=== PATIENT | female | born 1955 | race Caucasian/White ===

== ENCOUNTER 2016-12-31 15:42 | Observation (INO) ==
[2016-12-31] MEDS ORDERED: methylPREDNISolone 125 MG/2 ML VIAL IVP ONE (15:56)
[2016-12-31] MEDS ORDERED: Ipratropium/Albuterol Neb 3 ML IH ONE (15:56)
--- NOTE | 2016-12-31 15:59 | Emergency Department Note ---
START Narrative - START START: Dr. Ochoa had a critical patient and I saw this patient to do the initial evaluation and order labs and imaging studies. Patient presents to the emergency department with complaint of difficulty in breathing. Patient states that her symptoms of bone present for approximately 4 weeks. Patient states that she was seen at an urgent care, prescribed antibiotics, steroids and an inhaler but has not had any significant improvement. She denies any chest pain. She denies any dizziness or lightheadedness. She denies any fever, chills, nausea, vomiting or abdominal pain.
--- NOTE | 2016-12-31 16:19 | Emergency Department Note ---
Disposition Clinical Impression: Acute exacerbation of chronic obstructive airways disease Disposition: Admitted As Inpatient Condition: Fair Referrals: NO,PCP [Primary Care Provider] - Forms: ED Satisfaction Letter Time of Disposition: 18:01 SOB HPI - General Chief Complaint: ED Shortness of Breath/Dyspnea Stated Complaint: BLAYNE Time Seen by Provider: 12/31/16 15:56 Source: patient, family Limitations: no limitations Nursing Notes Reviewed: Yes Vital Signs Reviewed: Yes - History of Present Illness 61-year-old who comes in with increasing shortness of breath. States she has no history of COPD but has a 40+ pack year history of smoking. Has had a cough. Pt Subjective Complaint: shortness of breath, cough Onset (ago): day(s) Context: recent illness Severity: moderate Consistency/Duration: constant Improves with: nothing Worsens with: exertion Associated symptoms: Reports: cough, wheezing. Denies: chest pain, fever - Related Data Previous Rx's Medication Instructions Recorded Albuterol Sulfate [Proair Hfa] 1 puff IH Q4H PRN #1 inh 12/20/16 Azithromycin [Zithromax] 250 mg PO DAILY #6 tablet 12/20/16 PredniSONE [Prednisone] 60 mg PO DAILY 5 Days 12/20/16 Allergies Allergy/AdvReac Type Severity Reaction Status Date / Time ampicillin Allergy Hives Verified 12/20/16 16:26 All systems ED: reviewed and negative except as stated. Constitutional: Denies: fever, chills, weakness, weight change Eyes: Denies: eye pain, eye discharge, vision change ENT ED: Denies: ear pain, throat pain, dental pain, hearing loss, epistaxis, congestion, dysphagia Cardiovascular: Denies: chest pain, palpitations, dyspnea on exertion, edema, syncope Respiratory: Reports: cough, dyspnea, wheezes. Denies: hemoptysis, stridor Gastrointestinal: Denies: abdominal pain, nausea, vomiting, diarrhea, constipation, hematemesis, melena, hematochezia Genitourinary: Denies: dysuria, frequency, hematuria, discharge Musculoskeletal: Denies: back pain, neck pain, arthralgia, myalgia Integumentary: Denies: rash, abrasion, lesions Neurological: Denies: headache, weakness, numbness, paresthesias, confusion, abnormal gait, vertigo Psychiatric: Denies: anxiety, depression, suicidal thoughts, homicidal thoughts , auditory hallucinations, visual hallucinations Endocrine: Denies: fatigue Hematological/Lymphatic: Denies: easy bleeding, easy bruising Allergic/Immunologic: Denies: facial swelling, urticaria Past Medical History - Past Medical History Medical history: Reports: hyperlipidemia - Social History Smoking Status: Current every day smoker Smokeless Tobacco Status: No Alcohol use: Reports: occasionally Physical Exam - General Limitations: no limitations General appearance: alert, in no apparent distress - Head Head exam: atraumatic, normocephalic, normal inspection - Eye Eye exam: Present: normal appearance, PERRL, EOMI - ENT ENT exam: normal exam, normal oropharynx, mucous membranes moist - Neck Neck exam: Present: normal inspection, full ROM, trachea midline - Chest Chest inspection: Present: normal inspection, symmetric chest wall rise - Respiratory Respiratory exam: Present: wheezes, accessory muscle use, prolonged expiratory phase - Cardiovascular Cardiovascular exam: Present: regular rate, normal rhythm, normal heart sounds - Abdominal Exam Abdominal exam: Present: soft, Non-Tender. Absent: tenderness, distention, guarding, rebound, rigidity - Extremities Exam Extremities exam: Present: normal inspection, full ROM. Absent: tenderness, pedal edema - Expanded Lower Extremity Exam Neurovascular/Tendon exam: Absent: motor deficit, sensory deficit, tendon deficit Gait: observed and normal - Back Exam Back exam: Present: normal inspection, full ROM. Absent: tenderness Course - Reevaluation(s) Reevaluation #1: 61-year-old with no previous history concerning her lungs but she comes in complaining of increasing shortness of breath with diffuse wheezes. Patient does have a 40+ year smoking history. Since initial blood pressure was elevated but came down with treatment. Time: 18:00 - Consultations Consultation #1: Discussed with , admit. Time: 18:16 Vital Signs Temperature 97.9 F 12/31/16 15:46 Pulse Rate 100 12/31/16 15:46 Respiratory Rate 22 12/31/16 15:46 Blood Pressure 168/113 12/31/16 15:46 O2 Sat by Pulse Oximetry 98 12/31/16 15:46 Temperature 97.9 F 12/31/16 15:46 Pulse Rate 90 12/31/16 18:04 Respiratory Rate 20 12/31/16 18:04 Blood Pressure 145/80 12/31/16 18:04 O2 Sat by Pulse Oximetry 94 12/31/16 18:04 Oxygen Delivery Oxygen Delivery Room Air Shortness of Breath/Dyspnea - Lab Data Lab results reviewed: Yes I reviewed the patient's lab results. Result diagrams: 12/31/16 16:37 12/31/16 16:37 Lab Results 12/31/16 12/31/16 12/31/16 Range/Units 16:37 16:37 16:37 WBC 11.6 H (4.3-11.1) K/mcL RBC 5.42 H (3.82-4.97) M/mcL Hgb 15.1 (11.5-15.4) g/dL Hct 47.7 H (35.3-44.9) % MCV 88.0 (83.0-100.0) fL MCH 27.9 L (28.0-33.3) pg MCHC 31.7 (31.6-35.5) g/dL RDW 13.7 (11.5-14.5) % Plt Count 364 (140-400) K/mcL MPV 11.7 (9.4-12.4) fL Immature Gran % 0.8 (0-4) % Seg Neutrophils % 86.7 % Lymphocytes % 9.9 % Monocytes % 1.2 % Eosinophils % 0.4 % Basophils % 1.0 % Neutrophils # 10.0 H (1.6-8.9) K/mcL Lymphocytes # 1.2 (0.6-4.6) K/mcL Monocytes # 0.1 (0.0-1.3) K/mcL Eosinophils # 0.1 (0.0-0.6) K/mcL Basophils # 0.1 (0.0-0.2) K/mcL PT 10.9 (9.4-12.1) Seconds INR 1.0 APTT 31.2 (26.0-36.0) Seconds Sodium 140 (136-145) mEq/L Potassium 3.6 (3.5-4.5) mEq/L Chloride 105 (98-109) mEq/L Carbon Dioxide 25 (19-29) mEq/L BUN 6 L (7-20) mg/dL Creatinine 0.78 (0.57-1.11) mg/dL Est GFR ( Amer) > 60 (> 60) Est GFR (Non-Af Amer) > 60 (> 60) BUN/Creatinine Ratio 8 (6-26) Glucose 188 H (70-99) mg/dL Calculated Osmolality 293 (280-300) Calcium 9.8 (8.6-10.8) mg/dL Troponin I (0-0.03) ng/mL B-Natriuretic Peptide (0-100) pg/mL 12/31/16 12/31/16 Range/Units 16:37 16:37 WBC (4.3-11.1) K/mcL RBC (3.82-4.97) M/mcL Hgb (11.5-15.4) g/dL Hct (35.3-44.9) % MCV (83.0-100.0) fL MCH (28.0-33.3) pg MCHC (31.6-35.5) g/dL RDW (11.5-14.5) % Plt Count (140-400) K/mcL MPV (9.4-12.4) fL Immature Gran % (0-4) % Seg Neutrophils % % Lymphocytes % % Monocytes % % Eosinophils % % Basophils % % Neutrophils # (1.6-8.9) K/mcL Lymphocytes # (0.6-4.6) K/mcL Monocytes # (0.0-1.3) K/mcL Eosinophils # (0.0-0.6) K/mcL Basophils # (0.0-0.2) K/mcL PT (9.4-12.1) Seconds INR APTT (26.0-36.0) Seconds Sodium (136-145) mEq/L Potassium (3.5-4.5) mEq/L Chloride (98-109) mEq/L Carbon Dioxide (19-29) mEq/L BUN (7-20) mg/dL Creatinine (0.57-1.11) mg/dL Est GFR ( Amer) (> 60) Est GFR (Non-Af Amer) (> 60) BUN/Creatinine Ratio (6-26) Glucose (70-99) mg/dL Calculated Osmolality (280-300) Calcium (8.6-10.8) mg/dL Troponin I 0.00 (0-0.03) ng/mL B-Natriuretic Peptide 20 (0-100) pg/mL - Radiology Data Radiology results reviewed: Yes I reviewed the patient's radiology results. Chest X-Ray 12/31/16 15:56 IMPRESSION: No acute findings D/ / Efra Hager MD / Efra Hager MD Interpreting Provider: Efra Hager MD - EKG Data EKG attestation: Yes I reviewed and interpreted this EKG. EKG shows normal: Reports: sinus rhythm Rate: Reports: normal Rhythm: Reports: NSR Interpretation: Reports: no acute changes
[2016-12-31 16:53] LABS: Basophils # 0.1 K/mcL (0.0-0.2); Eosinophils # 0.1 K/mcL (0.0-0.6); Eosinophils % 0.4 %; Hematocrit 47.7 % (35.3-44.9); Hemoglobin 15.1 g/dL (11.5-15.4); Immature Granulocytes % 0.8 % (0-4); Lymphocytes # 1.2 K/mcL (0.6-4.6); Lymphocytes % 9.9 %; Mean Corpuscular HGB Conc 31.7 g/dL (31.6-35.5); Mean Corpuscular Hemoglobin 27.9 pg (28.0-33.3); Mean Platelet Volume 11.7 fL (9.4-12.4); Monocytes # 0.1 K/mcL (0.0-1.3); Monocytes % 1.2 %; Platelet Count 364 K/mcL (140-400); Red Blood Count 5.42 M/mcL (3.82-4.97); Red Cell Distribution Width 13.7 % (11.5-14.5); Segmented Neutrophils % 86.7 %
[2016-12-31 16:59] LABS: Prothrombin Time 10.9 Seconds (9.4-12.1)
[2016-12-31 17:02] LABS: Activated Partial Thrombo Time 31.2 Seconds (26.0-36.0)
[2016-12-31 17:07] LABS: BUN/Creatinine Ratio 8 (6-26); Blood Urea Nitrogen 6 mg/dL (7-20); Calcium 9.8 mg/dL (8.6-10.8); Carbon Dioxide 25 mEq/L (19-29); Chloride 105 mEq/L (98-109); Glucose 188 mg/dL (70-99); Osmolality,Calculated 293 (280-300); Potassium 3.6 mEq/L (3.5-4.5); Sodium 140 mEq/L (136-145); eGFR For African Americans > 60 (> 60); eGFR For Non-African Americans > 60 (> 60)
[2016-12-31] MEDS ORDERED: *HR* Dextrose 50 % in Water (Syg) 50 ML SYRINGE IVP PRN (19:54)
[2016-12-31] MEDS ORDERED: Acetaminophen 325 MG TABLET PO PRN (19:54)
[2016-12-31] MEDS ORDERED: Ondansetron 4 MG/2 ML VIAL IVP PRN (19:54)
[2016-12-31] MEDS ORDERED: Naloxone 0.4 MG/ML INJ IVP PRN (19:54)
[2016-12-31] MEDS ORDERED: D5% in Water 1,000 ML IVC PRN (19:54)
[2016-12-31] MEDS ORDERED: Dextrose Gel 15 GM PO PRN ×2 (19:54)
--- NOTE | 2016-12-31 19:59 | Internal Med History&Physical ---
Date of Encounter: 12/31/16 Time of Encounter: 19:57 Assessment and Plan (1) Acute exacerbation of chronic obstructive airways disease Current visit: Yes Status: Acute Acute COPD exacerbation likely secondary to bronchitis viral versus bacterial Start Rocephin and continue Solu-Medrol IV, DuoNeb's Smoking cessation counseling, oxygen therapy (2) Tobacco abuse Current visit: Yes Status: Acute Smoking cessation counseling given for 5 minutes. Start nicotine patch (3) Accelerated hypertension Current visit: Yes Status: Acute Likely exacerbated by stress and shortness of breath Start lisinopril, order hydralazine as needed (4) Hyperlipidemia Current visit: Yes Status: Acute Qualifiers: Hyperlipidemia type: pure hypercholesterolemia Qualified Code(s): E78.00 - Pure hypercholesterolemia, unspecified; E78.0 - Pure hypercholesterolemia (5) GERD (gastroesophageal reflux disease) Current visit: Yes Status: Acute Continue Nexium at home and start Prilosec while being here in the hospital as Nexium is not available Early ambulation for DVT prophylaxis, patient will be admitted for observation. Full code. Time spent on this admission 40 minutes. Qualifiers: Esophagitis presence: without esophagitis Qualified Code(s): K21.9 - Gastro -esophageal reflux disease without esophagitis Internal Medicine - H&P: HPI Chief complaint: Shortness of breath Admitted From: Emergency Dept History of present illness: Ms. Aguilar is a 61 year old female with a past medical history of GERD and tobacco abuse who has never been diagnosed with COPD. Was seen at the emergency room at the beginning of this month on December 20 which she was diagnosed with bronchitis and was sent home on prednisone and assist from [facility]. The patient mentions that for the past week her shortness of breath has been getting worse. Her great grandbaby was diagnosed with her upper respiratory infection recently. White blood cell count is 11.6. Glucose is 188 and she has not seen a doctor in 7 years, no history of diabetes. Heart rate was in the 100s and her blood pressure was 176/105 during my examination. The chest x-ray did not show any abnormalities, she has been reading up yellow and whitish phlegm. Denies any other complaint at the moment she denied having any allergies but she has an ampicillin allergy and sulfa allergy recorded. Past Med Surg Social Fam HX - Past Medical History Medical history: GERD, hyperlipidemia, other (Hypertension, tobacco abuse) Psychiatric history: no psych history - Past Surgical History Surgical History: other (Back surgery twice, left foot and left hand surgeries) - Social History Smoking Status: Current every day smoker Packs per day: 1-1/2 packs per day Smokeless Tobacco Status: No Alcohol use: occasionally Drug use: none - Family History Father Hx Family Cancer: Yes (prostate) Mother Living Status: Hx Family Cardiac Disorders: Yes Hx Family Respiratory Disorders: Yes (copd) Hx Family Endocrine Disorder: Yes - Additional Family History Additional family history: Father with prostate cancer, mother with CVA and CAD. Brother with bone/hip cancer Internal Medicine - H&P: Meds Albuterol Sulfate [Proair Hfa] 1 puff IH Q4H PRN #1 inh 12/20/16 [Rx] Esomeprazole Magnesium [Nexium] 40 mg PO QAM 12/31/16 [History] Multivit-Minerals/Folic/Ginkgo [One Daily For Women 50+ Adv Tb] 1 tab PO DAILY 12/31/16 [History] Allergies ampicillin Allergy (Verified 12/20/16 16:26) Hives Sulfa (Sulfonamide Antibiotics) Allergy (Verified 12/31/16 18:44) Hives All Systems PM: A 10-system review of systems was performed and is negative for pertinent findings except as documented above in the HPI. Review of systems: No chest pain, no abdominal pain, no dysuria. Other systems out of the 10 reviewed were negative - Constitutional Vitals: Temp Pulse Resp BP Pulse Ox 98.2 F 95 18 176/105 94 12/31/16 19:42 12/31/16 19:42 12/31/16 19:42 12/31/16 19:42 12/31/16 19:42 - Head Head exam: Present: atraumatic, normocephalic - Eye Eye exam: Present: PERRL, conjuntiva pink, sclera anicteric Pupils: Present: PERRL - Neck Neck exam general surgery: Present: supple, trachea midline. Absent: lymphadenopathy - Respiratory Respiratory exam: Present: decreased breath sounds (Very diminished breath sounds with diffuse wheezing), CTAB, wheezes. Absent: accessory muscle use, rales, rhonchi - Cardiovascular Cardiovascular exam: Present: RRR, +S1, +S2. Absent: diastolic murmur, gallop, rubs, systolic murmur - GI/Abdominal GI/Abdominal exam: Present: normal bowel sounds, soft, no peritoneal signs. Absent: distended, tenderness - Extremities Exam Extremities exam: Present: warm, radial pulses palpable and symetrical. Absent : calf tenderness, cyanotic, pedal edema - Neurological Exam Neurological exam: Present: CN II-XII intact, oriented X3, no focal deficits. Absent: pronater drift, facial droop, speech deficit - Skin Skin exam: Present: dry, intact Internal Med - H&P Results - Labs CBC & Chem 7: 12/31/16 16:37 12/31/16 16:37
[2016-12-31] MEDS: MethylPREDNISolone 40 MG/ML VIAL IVP SCH (21:13)
[2016-12-31] MEDS: Nicotine 21 MG PATCH.TD24 TD SCH (21:13)
[2016-12-31] MEDS: Insulin LISPRO 300 UNITS/3 ML VIAL SQ SCH (21:14)
[2016-12-31] MEDS: Lisinopril 20 MG TABLET PO SCH (21:14)
[2016-12-31] MEDS: Ipratropium/Albuterol Neb 3 ML IH SCH (23:51)
[2017-01-01 03:57] LABS: Basophils % 0.5 %; Hematocrit 43.7 % (35.3-44.9); Immature Granulocytes % 1.6 % (0-4); Lymphocytes % 11.1 %; Mean Corpuscular Hemoglobin 28.1 pg (28.0-33.3); Mean Corpuscular Volume 87.6 fL (83.0-100.0); Mean Platelet Volume 12.3 fL (9.4-12.4); Monocytes # 0.2 K/mcL (0.0-1.3); Monocytes % 2.6 %; Neutrophils # 7.4 K/mcL (1.6-8.9); Platelet Count 362 K/mcL (140-400); Red Blood Count 4.99 M/mcL (3.82-4.97); Red Cell Distribution Width 13.6 % (11.5-14.5); Segmented Neutrophils % 84.2 %
[2017-01-01 04:04] LABS: Hemoglobin A1C 5.4 %
[2017-01-01 04:13] LABS: Alanine Aminotransferase 9 Units/L (0-55); Albumin 3.6 g/dL (3.5-5.0); Alkaline Phosphatase 134 Units/L (38-126); Aspartate Amino Transferase 9 Units/L (5-34); BUN/Creatinine Ratio 8 (6-26); Bilirubin,Total 0.3 mg/dL (0.2-1.2); Blood Urea Nitrogen 6 mg/dL (7-20); Carbon Dioxide 23 mEq/L (19-29); Chloride 102 mEq/L (98-109); Globulin 3.6 g/dL (2.4-3.5); Glucose 158 mg/dL (70-99); Osmolality,Calculated 289 (280-300); Potassium 3.6 mEq/L (3.5-4.5); Sodium 139 mEq/L (136-145); Total Protein 7.2 g/dL (6.0-8.3); eGFR For African Americans > 60 (> 60); eGFR For Non-African Americans > 60 (> 60)
[2017-01-01] MEDS: Ipratropium/Albuterol Neb 3 ML IH SCH ×4 (04:38→23:11)
[2017-01-01] MEDS: Lisinopril 20 MG TABLET PO SCH (08:25)
[2017-01-01] MEDS: Insulin LISPRO 300 UNITS/3 ML VIAL SQ SCH ×4 (08:26→21:00)
[2017-01-01] MEDS: Nicotine 21 MG PATCH.TD24 TD SCH (08:26)
[2017-01-01] MEDS: MethylPREDNISolone 40 MG/ML VIAL IVP SCH ×3 (08:34→20:29)
--- NOTE | 2017-01-01 14:10 | Internal Med Progress Note ---
Date of Encounter: 01/01/17 Time of Encounter: 08:25 - Assessment and plan (1) Acute exacerbation of chronic obstructive airways disease Current Visit: Yes Status: Acute Assessment and plan: Patient has never been diagnosed with COPD. She has recent illness over the last 1-1/2 weeks she was seen at [facility] urgent care for URI symptoms and was given prednisone, antibiotic, and an albuterol inhaler. Her antibiotic was Z-Seb. She said she did not get any better and has actually become worse. She reports productive cough with white sputum. Wheezing is heard in all posterior lung dickerson. And she coughs with deep inspiration. White count is 8.7, patient is on room air and is satting anywhere from 90-94%, her chest x-ray showed no acute findings. We discussed smoking cessation. We talked for at least 10 minutes. We discussed multiple options and she is agreeable to trying Chantix. I will give her prescription when she goes home tomorrow. She is also requested a nebulizer and albuterol treatments for discharge. Yash troy Rocephin 1 g IV daily Solu-Medrol 40 mg (2) Tobacco abuse Current Visit: Yes Status: Acute Assessment and plan: Chronic smoker. Reports that she smokes anywhere from 1/2-1 pack per day. Smoking cessation with Chantix. Prescription on discharge (3) Accelerated hypertension Current Visit: Yes Status: Acute Assessment and plan: Patient remained slightly hypertensive for age, 140s over 80s. Her resting pulse is over 100 as well. I have changed her blood pressure medication to metoprolol 12.5 mg by mouth twice a day we will assess again in the morning. (4) GERD (gastroesophageal reflux disease) Current Visit: Yes Status: Acute Assessment and plan: Chronic. Continue Nexium. Qualifiers: Esophagitis presence: without esophagitis Qualified Code(s): K21.9 - Gastro -esophageal reflux disease without esophagitis (5) Hyperlipidemia Current Visit: Yes Status: Acute Assessment and plan: Chronic. Patient does not take medication at this time at home. I cannot find documentation of a lipid panel, I will redraw fasting at 400 in the morning Qualifiers: Hyperlipidemia type: pure hypercholesterolemia Qualified Code(s): E78.00 - Pure hypercholesterolemia, unspecified; E78.0 - Pure hypercholesterolemia - Time Spent With Patient less than 15 minutes - Subjective Interval history: Patient was seen and examined about 825 this morning. She is sitting up in her bed, she had eaten all of her breakfast. She reports about a 1-1/2 week history of productive cough and difficulty breathing. She was seen in urgent care where she received prednisone, Z-Seb, and an inhaler. She did not get better. Over the last week she became increasingly short of breath and came to the emergency department for evaluation. She has mild leukocytosis at 11.6. She has been tachycardic with resting heart rate over 100. In her blood pressure has been elevated as well. She was placed on lisinopril on admission, I have changed it to metoprolol 12.5 mg by mouth twice a day due to heart rate. We just 6 minute walk this morning while her sats stayed in the mid 90s, her pulse was in the 120s and 130s. 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 She said she does not feel up to going home yet and will stay until morning. \ - Constitutional Vitals: Temp Pulse Resp BP Pulse Ox 98.2 F 107 18 147/82 94 01/01/17 11:08 01/01/17 11:08 01/01/17 11:08 01/01/17 11:08 01/01/17 12:37 General appearance: Present: A&O X 3, pleasant, no acute distress, answers questions appropriately - Head Head exam: Present: normal inspection - Eye Eye exam: Present: normal appearance, conjuntiva pink - ENT ENT exam: Present: mucous membranes moist, normal exam - Neck Neck exam general surgery: Present: normal inspection. Absent: lymphadenopathy , tenderness - Respiratory Respiratory exam: Present: decreased breath sounds, rhonchi, wheezes. Absent: respiratory distress, tachypnea - Cardiovascular Cardiovascular exam: Present: RRR, +S1, +S2. Absent: diastolic murmur, systolic murmur - GI/Abdominal GI/Abdominal exam: Present: normal bowel sounds, soft. Absent: tenderness - Extremities Exam Extremities exam: Present: normal inspection, warm, radial pulses palpable and symetrical. Absent: pedal edema, tenderness Internal Medicine: Result - Labs CBC & Chem 7: 01/01/17 03:09 01/01/17 03:09 Labs: Short CBC 01/01/17 Range/Units 03:09 WBC 8.7 (4.3-11.1) K/mcL Hgb 14.0 (11.5-15.4) g/dL Hct 43.7 (35.3-44.9) % Plt Count 362 (140-400) K/mcL Neutrophils # 7.4 (1.6-8.9) K/mcL BMP 01/01/17 03:09 Sodium 139 Potassium 3.6 Chloride 102 Carbon Dioxide 23 BUN 6 L Creatinine 0.76 Glucose 158 H Calcium 10.0 Liver Function 01/01/17 Range/Units 03:09 Total Bilirubin 0.3 (0.2-1.2) mg/dL AST 9 (5-34) Units/L ALT 9 (0-55) Units/L Alkaline Phosphatase 134 H (38-126) Units/L Albumin 3.6 (3.5-5.0) g/dL - ABG Interpretation ABG results: PT/INR, D-dimer PT 10.9 Seconds (9.4-12.1) 12/31/16 16:37 Consult Discharge Plan - Plan Referrals: NO,PCP [Primary Care Provider] -
[2017-01-01] MEDS: Pantoprazole 40 MG VIAL IVP SCH (20:29)
[2017-01-02 02:56] LABS: Basophils % 0.2 %; Hematocrit 42.2 % (35.3-44.9); Hemoglobin 13.4 g/dL (11.5-15.4); Immature Granulocytes % 1.3 % (0-4); Lymphocytes # 1.2 K/mcL (0.6-4.6); Lymphocytes % 6.7 %; Mean Corpuscular HGB Conc 31.8 g/dL (31.6-35.5); Mean Corpuscular Hemoglobin 27.9 pg (28.0-33.3); Mean Corpuscular Volume 87.9 fL (83.0-100.0); Mean Platelet Volume 12.2 fL (9.4-12.4); Monocytes # 0.6 K/mcL (0.0-1.3); Monocytes % 3.7 %; Neutrophils # 15.3 K/mcL (1.6-8.9); Platelet Count 361 K/mcL (140-400); Red Cell Distribution Width 14.1 % (11.5-14.5); Segmented Neutrophils % 88.1 %
[2017-01-02] MEDS: Ipratropium/Albuterol Neb 3 ML IH SCH ×2 (05:01→11:32)
[2017-01-02 05:11] LABS: BUN/Creatinine Ratio 16 (6-26); Blood Urea Nitrogen 12 mg/dL (7-20); Calcium 9.7 mg/dL (8.6-10.8); Carbon Dioxide 27 mEq/L (19-29); Chloride 106 mEq/L (98-109); Cholesterol 183 mg/dL (< 200); Glucose 130 mg/dL (70-99); HDL Cholesterol 62 mg/dL (40-59); LDL Cholesterol,Calculated 105 mg/dL (0-99); Osmolality,Calculated 296 (280-300); Potassium 5.1 mEq/L (3.5-4.5); Sodium 142 mEq/L (136-145); Triglycerides 78 mg/dL (< 150); eGFR For African Americans > 60 (> 60); eGFR For Non-African Americans > 60 (> 60)
[2017-01-02] MEDS: Pantoprazole 40 MG VIAL IVP SCH (05:48)
[2017-01-02] MEDS: Insulin LISPRO 300 UNITS/3 ML VIAL SQ SCH ×2 (09:13→12:22)
[2017-01-02] MEDS: Nicotine 21 MG PATCH.TD24 TD SCH (09:40)
[2017-01-02] MEDS: MethylPREDNISolone 40 MG/ML VIAL IVP SCH (09:44)
[2017-01-02 10:29] LABS: Basophils # 0.1 K/mcL (0.0-0.2); Basophils % 0.2 %; Hematocrit 44.8 % (35.3-44.9); Immature Granulocytes % 1.5 % (0-4); Lymphocytes % 14.6 %; Mean Corpuscular HGB Conc 31.3 g/dL (31.6-35.5); Mean Corpuscular Hemoglobin 27.8 pg (28.0-33.3); Mean Corpuscular Volume 88.9 fL (83.0-100.0); Mean Platelet Volume 12.1 fL (9.4-12.4); Monocytes # 0.8 K/mcL (0.0-1.3); Monocytes % 4.1 %; Neutrophils # 16.2 K/mcL (1.6-8.9); Platelet Count 386 K/mcL (140-400); Red Blood Count 5.04 M/mcL (3.82-4.97); Red Cell Distribution Width 14.4 % (11.5-14.5); Segmented Neutrophils % 79.6 %
[2017-01-02 10:49] LABS: BUN/Creatinine Ratio 16 (6-26); Blood Urea Nitrogen 14 mg/dL (7-20); Calcium 9.6 mg/dL (8.6-10.8); Carbon Dioxide 27 mEq/L (19-29); Chloride 105 mEq/L (98-109); Cholesterol 194 mg/dL (< 200); Glucose 173 mg/dL (70-99); HDL Cholesterol 64 mg/dL (40-59); LDL Cholesterol,Calculated 88 mg/dL (0-99); Osmolality,Calculated 301 (280-300); Potassium 3.2 mEq/L (3.5-4.5); Sodium 143 mEq/L (136-145); Triglycerides 208 mg/dL (< 150); eGFR For African Americans > 60 (> 60); eGFR For Non-African Americans > 60 (> 60)
[2017-01-02 11:08] VITALS: BP 120/76
--- NOTE | 2017-01-02 11:31 | Discharge Summary ---
Date of Encounter: 01/02/17 Time of Encounter: 09:30 - Discharge Diagnosis (1) Acute exacerbation of chronic obstructive airways disease Priority: Primary Status: Acute Comments: COPD exacerbation most likely bronchitis. Pt reports moist, productive cough today, she states that cough is constant. Lungs with better aeration than yesterday with ronchi posteriorly, some clearing with cough. Wheezing heard in upper airway anteriorly. Pt states that she feels much better today and wants to go home for Easter. Pt has been getting Rocephin, I will send her home with Levaquin for 5 days due to her leukocytosis that has been both 17 and 20 today. Blood was redrawn due to hemolysis and partial reporting of some labs. Pt has remained afebrile. Leukocytosis most likely due to high dose of steroids IV that she has been getting here. Prednisone taper for home. Levaquin 500mg po x 5 days, first dose here since it is a holiday and pharmacy may not be open. Pt has Albuterol inhaler at home. Pt has requested a nebulizer for home, albuterol treatments Mucinex rx (2) Tobacco abuse Priority: Secondary Status: Chronic Comments: Chronic. Chantix rx for home. (3) Accelerated hypertension Priority: Secondary Status: Chronic Comments: Pt has been placed on Metoprolol here, tolerating well. BP and pulse have been well controlled. (4) GERD (gastroesophageal reflux disease) Priority: Secondary Status: Chronic Comments: Chronic. Continue home medications. Qualifiers: Esophagitis presence: without esophagitis Qualified Code(s): K21.9 - Gastro -esophageal reflux disease without esophagitis (5) Hyperlipidemia Priority: Secondary Status: Chronic Comments: Pt states that she stopped taking her medications when she lost her PCP. She used to take crestor and has requested to restart it. Trig 208, Cholesterol 194, LCL 88, VLDL 42, HDL 64. Restart Crestor. Qualifiers: Hyperlipidemia type: pure hypercholesterolemia Qualified Code(s): E78.00 - Pure hypercholesterolemia, unspecified; E78.0 - Pure hypercholesterolemia - Discharge Medications Prescriptions: GuaiFENesin ER [Mucinex] 1,200 mg PO BID #20 tbbp.12hr Ipratropium/Albuterol Neb [Duoneb] 3 ml IH QIDR PRN #50 inhsol PRN Reason: Wheezing Levofloxacin [Levaquin] 500 mg PO DAILY #4 tablet Metoprolol [Lopressor] 12.5 mg PO BID #60 tablet Nebulizer [Aeroeclipse] 1 each PRN PRN #1 each PRN Reason: Wheezing Nebulizer Accessories [A.i.r.s. Nebulizer] 1 each PRN PRN #1 kit PRN Reason: Wheezing Nebulizer/Compressor [Eldridge Choice Nebulizer] 1 each PRN PRN #1 each PRN Reason: Wheezing PredniSONE 10 mg PO DAILY #31 tablet Rosuvastatin Calcium [Crestor] 10 mg PO DAILY #30 tablet Varenicline Tartrate [Chantix] 1 each PO DAILY #1 tab.ds.pk Home Medications: Albuterol Sulfate [Proair Hfa] 1 puff IH Q4H PRN #1 inh 12/20/16 [Rx] Esomeprazole Magnesium [Nexium] 40 mg PO QAM 12/31/16 [History] Multivit-Minerals/Folic/Ginkgo [One Daily For Women 50+ Adv Tb] 1 tab PO DAILY 12/31/16 [History] GuaiFENesin ER [Mucinex] 1,200 mg PO BID #20 tbbp.12hr 01/02/17 [Rx] Ipratropium/Albuterol Neb [Duoneb] 3 ml IH QIDR PRN #50 inhsol 01/02/17 [Rx] Levofloxacin [Levaquin] 500 mg PO DAILY #4 tablet 01/02/17 [Rx] Metoprolol [Lopressor] 12.5 mg PO BID #60 tablet 01/02/17 [Rx] Nebulizer Accessories [A.i.r.s. Nebulizer] 1 each PRN PRN #1 kit 01/02/17 [Rx ] Nebulizer [Aeroeclipse] 1 each PRN PRN #1 each 01/02/17 [Rx] Nebulizer/Compressor [Eldridge Choice Nebulizer] 1 each PRN PRN #1 each [Rx] PredniSONE 10 mg PO DAILY #31 tablet 01/02/17 [Rx] Rosuvastatin Calcium [Crestor] 10 mg PO DAILY #30 tablet 01/02/17 [Rx] Varenicline Tartrate [Chantix] 1 each PO DAILY #1 tab.ds.pk 01/02/17 [Rx] Allergies/Adverse Reactions: Allergies ampicillin Allergy (Verified 12/20/16 16:26) Hives Sulfa (Sulfonamide Antibiotics) Allergy (Verified 12/31/16 18:44) Hives Date of admission: 12/31/16 18:23 Primary care physician: PCP NO Consults: 12/31/16 19:52 Consult to Nurse Navigator [CONS] Routine Comment: Discharging clinician: Jennifer Alexander - Patient Status Disposition: Home, Self-Care Condition: Good Functional capacity at discharge: independent ambulation Overall status at discharge: patient is progressing back to baseline - Discharge Instructions Follow Up With: NO,PCP [Primary Care Provider] - Additional Instructions: Stay hydrated and take your medications as written Continue your other home medications Use your nebulizer treatments as needed for wheezing Take your Levaquin (antibiotic) every day until they are gone. Take the prednisone (steroid) as written and until they are gone. Please follow up with a PCP in the next week. REturn to emergency dept as needed for other problems or concerns or if your condition changes or worsens. - Diet and Activity Activity: resume usual activities as tolerated Diet: advance to your usual diet Interval History: Mrs. Aguilar is a 61-year-old female who lives at home with her son and 6-month- old grandson. Her only medical history prior to this visit was GERD and smoking. She is new onset COPD. She was seen in urgent care earlier this month and was diagnosed with bronchitis and sent home on prednisone, a zpack, and an albuterol inhaler. She did not get better and presented to the emergency department on December 29 with a one-week history of worsening shortness of breath. 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 She was admitted and placed on IV Rocephin 1 g every 12 hours IV, Solu-Medrol 40 mg IV push 3 times a day, and nebulizers as needed. Her chest x-ray in the emergency department shows heart size is stable, lungs are clear without infiltrate or pleural effusion. No acute findings. She has remained afebrile throughout this visit and today states that she feels better and is ready to go home and having Easter with her family. Her white count was elevated at 20. I believe this is primarily due to her high steroid dose. She has been treated with Rocephin and I am sending her home on Levaquin 500 mg daily for 5 days. Her labs were drawn 3 times this morning as the manager media relations specimen was hemolyzed and lab reported to primary nurse that they have been able to report some findings. They reported that her potassium was 5.1, we redo the blood and was actually within normal limits. Her white count went from 17-20, it was after administration of steroids this morning. Mrs. Aguilar does not have a primary care physician and has not been taking her Crestor. She requested to restart it and is going to follow-up with primary care from the find list. Today her vitals have been stable. She has been around 90-93% without oxygen this morning. She did not qualify for home oxygen. She became rather tachycardic while she was walking and was tachycardic at rest. She was placed on metoprolol 12.5 mg by mouth twice a day which has controlled her pressure and pulse. She has rhonchi in her posterior lung dickerson, some clearing with cough. She has wheezing in upper anterior lung dickerson. Patient will be sent home with a nebulizer and equipment, albuterol treatments, Mucinex, prednisone taper, Levaquin 500 mg by mouth 4 days after first dose here and today his holiday and pharmacy may not be open, I am also sending her home with the metoprolol prescription and Crestor. Patient is not in respiratory distress she speaks easily in full sentences. Patient is stable for discharge. Hospital course: Ms. Aguilar is a 61 year old female Time spent discussing smoking cessation with patient: 3 to 10 minutes - Time Spent with Patient Total time spent providing and/or coordinating discharge services: - Constitutional Vitals: Temp Pulse Resp BP Pulse Ox 97.8 F 92 17 120/76 91 01/02/17 11:04 01/02/17 11:04 01/02/17 11:04 01/02/17 11:04 01/02/17 11:04 General appearance: Present: A&O X 3, pleasant, no acute distress, answers questions appropriately - Head Head exam: Present: normal inspection - Eye Eye exam: Present: normal appearance, conjuntiva pink - ENT ENT exam: Present: mucous membranes moist, normal exam - Neck Neck exam general surgery: Present: normal inspection. Absent: lymphadenopathy , tenderness - Respiratory Respiratory exam: Present: rhonchi, wheezes. Absent: accessory muscle use, chest wall tenderness, respiratory distress - Cardiovascular Cardiovascular exam: Present: RRR, +S1, +S2. Absent: diastolic murmur, systolic murmur - GI/Abdominal GI/Abdominal exam: Present: normal bowel sounds, soft. Absent: distended, tenderness - Extremities Exam Extremities exam: Present: normal capillary refill, normal inspection, warm, radial pulses palpable and symetrical. Absent: pedal edema, tenderness - Neurological Exam Neurological exam: Present: alert, oriented X3, strengths equal and symetr throughout, pronater drift. Absent: no focal deficits, facial droop, speech deficit
[2017-01-02] MEDS ORDERED: levoFLOXacin 500 MG TABLET PO ONE (12:09)
--- NOTE | 2017-01-03 08:57 | Electrocardiograph Report ---
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
== END 2017-01-02 13:45 | disposition home or self-care (01) ==
LOC: EMEROO 15:42 → 3BNU 15:42
PROVIDERS: ADMIT Internal Medicine; ATTEND Registered Nurse

== ENCOUNTER 2017-02-25 12:25 | Observation (INO) ==
[2017-02-25] MEDS ORDERED: Ipratropium/Albuterol Neb 3 ML IH ONE (12:50)
[2017-02-25] MEDS ORDERED: methylPREDNISolone 125 MG/2 ML VIAL IVP ONE (12:50)
--- NOTE | 2017-02-25 13:09 | Emergency Department Note ---
Disposition Clinical Impression: COPD exacerbation Disposition: Admitted As Inpatient Condition: Fair Time of Disposition: 15:00 SOB HPI - General Chief Complaint: ED Shortness of Breath/Dyspnea Stated Complaint: BLAYNE Time Seen by Provider: 02/25/17 12:27 Source: patient, EMS Limitations: no limitations Nursing Notes Reviewed: Yes Vital Signs Reviewed: Yes - History of Present Illness Patient is a 61-year-old female who presents to [facility] ED with a chief complaint of shortness of breath. States she has had a cough over the last month. States she was diagnosed with COPD when she was admitted last time. Patient has been using her nebulizer treatments every 4-6 hours at home. States over the last 3 days, she coughed so hard that she has severe back pain with it. Denies any nausea, vomiting, fever or chills, no chest pain or abdominal pain. Past medical history otherwise significant for hypertension , hyperlipidemia, borderline diabetes. Pt Subjective Complaint: shortness of breath, cough Onset (ago): week(s) Context: recent illness Severity: moderate Consistency/Duration: gradually worsening Improves with: nothing Worsens with: coughing Known history of: COPD, diabetes Associated symptoms: Reports: cough, wheezing. Denies: chest pain, fever, diaphoresis, nausea/vomiting, abdominal pain Treatment prior to arrival: none Cough present: Yes Cough Description: Involuntary, Hacking Cough Frequency: Intermittent - Related Data Home oxygen amount: none Home Medications Medication Instructions Recorded Confirmed Esomeprazole Magnesium [Nexium] 40 mg PO QAM 12/31/16 02/25/17 Multivit-Minerals/Folic/Ginkgo 1 tab PO DAILY 12/31/16 02/25/17 [One Daily For Women 50+ Adv Tb] Budesonide/Formoterol 80/4.5 2 puff IH BID 02/25/17 02/25/17 [Symbicort 80/4.5] Previous Rx's Medication Instructions Recorded Albuterol Sulfate [Proair Hfa] 1 puff IH Q4H PRN #1 inh 12/20/16 Ipratropium/Albuterol Neb [Duoneb] 3 ml IH QIDR PRN #50 inhsol 01/02/17 Metoprolol [Lopressor] 12.5 mg PO BID #60 tablet 01/02/17 Rosuvastatin Calcium [Crestor] 10 mg PO DAILY #30 tablet 01/02/17 Allergies Allergy/AdvReac Type Severity Reaction Status Date / Time ampicillin Allergy Hives Verified 12/20/16 16:26 Sulfa (Sulfonamide Allergy Hives Verified 12/31/16 18:44 Antibiotics) All systems ED: reviewed and negative except as stated. Past Medical History - Past Medical History Attestation: Yes The following information was validated with the patient. Source: patient Medical history: Reports: COPD, GERD, hyperlipidemia, hypertension, other Surgical history: Reports: other (Back surgery twice, left foot and left hand surgeries) Psychiatric history: Reports: no psych history - Social History Smoking Status: Current every day smoker Smokeless Tobacco Status: No Alcohol use: Reports: occasionally Drug use: Reports: none Physical Exam - General Limitations: no limitations General appearance: alert, in no apparent distress - Head Head exam: atraumatic, normocephalic, normal inspection - Eye Eye exam: Present: normal appearance, PERRL, EOMI - ENT ENT exam: normal exam, normal oropharynx, mucous membranes moist - Neck Neck exam: Present: normal inspection, full ROM, trachea midline - Chest Chest inspection: Present: normal inspection, symmetric chest wall rise - Respiratory Respiratory exam: Present: wheezes, other (Tight breath sounds bilaterally) - Cardiovascular Cardiovascular exam: Present: regular rate, normal rhythm, normal heart sounds - Abdominal Exam Abdominal exam: Present: soft, Non-Tender. Absent: tenderness, distention, guarding, rebound, rigidity - Extremities Exam Extremities exam: Present: normal inspection, full ROM. Absent: tenderness, pedal edema - Back Exam Back exam: Present: paraspinal tenderness (R midthoracic) - Neurological Exam Neurological exam: Present: alert - Psychiatric Psychiatric exam: Present: normal affect, normal mood - Skin Skin exam: Present: warm, dry, intact, normal color Course Course Narrative: Patient seen and examined. Shortness of breath over the last several weeks. Patient now using her nebulizer treatments every 4-6 hours. States her cough has been worsening and now gives her bad pain in her back. Patient's lung sounds are decreased and wheezy bilaterally. We will do a triple DuoNeb treatment as well as 125 mg Solu-Medrol. We will do cardiopulmonary workup. Suspect patient will need admission due to hypoxemia. She is saturating 92% on 2 L oxygen at rest. She is not on any home oxygen. - Reevaluation(s) Reevaluation #1: Patient's lab work shows a leukocytosis. Chest x-ray unremarkable. We will admit for COPD exacerbation. I spoke with hospitalist Dr. Zheng who has accepted patient for admission. Time: 15:00 Vital Signs Temperature 97.9 F 02/25/17 12:26 Pulse Rate 74 02/25/17 12:26 Respiratory Rate 20 02/25/17 12:26 Blood Pressure 148/112 02/25/17 12:26 O2 Sat by Pulse Oximetry 93 02/25/17 12:26 Temperature 98.1 F 02/25/17 19:00 Pulse Rate 81 02/25/17 19:00 Respiratory Rate 16 02/25/17 19:00 Blood Pressure 147/77 02/25/17 19:00 O2 Sat by Pulse Oximetry 95 02/25/17 19:00 Oxygen Delivery Oxygen Delivery Nasal Cannula Shortness of Breath/Dyspnea - Medical Records Medical records reviewed: Yes I reviewed the patient's medical records. - Lab Data Lab results reviewed: Yes I reviewed the patient's lab results. Result diagrams: 02/25/17 13:10 02/25/17 13:10 Lab Results 02/25/17 02/25/17 02/25/17 Range/Units 13:10 13:10 13:10 WBC 14.9 H D (4.3-11.1) K/mcL RBC 5.18 H (3.82-4.97) M/mcL Hgb 14.5 (11.5-15.4) g/dL Hct 44.5 (35.3-44.9) % MCV 85.9 (83.0-100.0) fL MCH 28.0 (28.0-33.3) pg MCHC 32.6 (31.6-35.5) g/dL RDW 13.1 (11.5-14.5) % Plt Count 341 (140-400) K/mcL MPV 12.0 (9.4-12.4) fL Immature Gran % 0.6 (0-4) % Seg Neutrophils % 74.9 % Lymphocytes % 13.8 % Monocytes % 5.4 % Eosinophils % 4.2 % Basophils % 1.1 % Neutrophils # 11.2 H (1.6-8.9) K/mcL Lymphocytes # 2.1 (0.6-4.6) K/mcL Monocytes # 0.8 (0.0-1.3) K/mcL Eosinophils # 0.6 (0.0-0.6) K/mcL Basophils # 0.2 (0.0-0.2) K/mcL Sodium 141 (136-145) mEq/L Potassium 4.0 (3.5-4.5) mEq/L Chloride 106 (98-109) mEq/L Carbon Dioxide 25 (19-29) mEq/L BUN 5 L (7-20) mg/dL Creatinine 0.71 (0.57-1.11) mg/dL Est GFR ( Amer) > 60 (> 60) Est GFR (Non-Af Amer) > 60 (> 60) BUN/Creatinine Ratio 7 (6-26) Glucose 109 H (70-99) mg/dL Calculated Osmolality 290 (280-300) Lactic Acid 1.3 (0.5-2.2) mmol/L Calcium 9.8 (8.6-10.8) mg/dL Troponin I (0-0.03) ng/mL B-Natriuretic Peptide (0-100) pg/mL 02/25/17 02/25/17 02/25/17 Range/Units 13:10 13:10 15:09 WBC (4.3-11.1) K/mcL RBC (3.82-4.97) M/mcL Hgb (11.5-15.4) g/dL Hct (35.3-44.9) % MCV (83.0-100.0) fL MCH (28.0-33.3) pg MCHC (31.6-35.5) g/dL RDW (11.5-14.5) % Plt Count (140-400) K/mcL MPV (9.4-12.4) fL Immature Gran % (0-4) % Seg Neutrophils % % Lymphocytes % % Monocytes % % Eosinophils % % Basophils % % Neutrophils # (1.6-8.9) K/mcL Lymphocytes # (0.6-4.6) K/mcL Monocytes # (0.0-1.3) K/mcL Eosinophils # (0.0-0.6) K/mcL Basophils # (0.0-0.2) K/mcL Sodium (136-145) mEq/L Potassium (3.5-4.5) mEq/L Chloride (98-109) mEq/L Carbon Dioxide (19-29) mEq/L BUN (7-20) mg/dL Creatinine (0.57-1.11) mg/dL Est GFR ( Amer) (> 60) Est GFR (Non-Af Amer) (> 60) BUN/Creatinine Ratio (6-26) Glucose (70-99) mg/dL Calculated Osmolality (280-300) Lactic Acid 1.1 (0.5-2.2) mmol/L Calcium (8.6-10.8) mg/dL Troponin I 0.00 (0-0.03) ng/mL B-Natriuretic Peptide 29 (0-100) pg/mL - Radiology Data Radiology results reviewed: Yes I reviewed the patient's radiology results. Chest X-Ray 02/25/17 12:54 IMPRESSION: No acute cardiopulmonary abnormality. D/ / Ramo Fernandez MD / Ramo Fernandez MD Interpreting Provider: Ramo Fernandez MD - EKG Data EKG attestation: Yes I reviewed and interpreted this EKG. EKG results narrative: EKG done at 1241 shows normal sinus rhythm with a rate of [address] elevation or depression. Normal axis. Attestation Statement - Attestation Attestation: I, Jose Duncan, examined this patient and my medical decision-making was reviewed with the 1ST GRADE TEACHER/PA/Advanced Practice Nurse/Resident Physician. I agree with the documented findings, disposition and treatment plan as described except to the extent set forth below. 61-year-old female presents with concerns of increasing shortness of breath over the past 4-5 days. Patient states this feels similar to her previous COPD exacerbations. Patient reports back pain with coughing but pain is not present when remaining still. Patient improved after administration of DuoNeb. Patient visibly dyspneic with conversation. X-ray does not show acute infiltrate. Patient will be admitted to the hospital for COPD exacerbation.
[2017-02-25] MEDS ORDERED: Ipratropium/Albuterol Neb 3 ML ONE (13:13)
[2017-02-25 13:22] LABS: Basophils # 0.2 K/mcL (0.0-0.2); Basophils % 1.1 %; Eosinophils # 0.6 K/mcL (0.0-0.6); Eosinophils % 4.2 %; Hematocrit 44.5 % (35.3-44.9); Hemoglobin 14.5 g/dL (11.5-15.4); Immature Granulocytes % 0.6 % (0-4); Lymphocytes # 2.1 K/mcL (0.6-4.6); Lymphocytes % 13.8 %; Mean Corpuscular HGB Conc 32.6 g/dL (31.6-35.5); Mean Corpuscular Volume 85.9 fL (83.0-100.0); Monocytes # 0.8 K/mcL (0.0-1.3); Monocytes % 5.4 %; Neutrophils # 11.2 K/mcL (1.6-8.9); Platelet Count 341 K/mcL (140-400); Red Blood Count 5.18 M/mcL (3.82-4.97); Red Cell Distribution Width 13.1 % (11.5-14.5); Segmented Neutrophils % 74.9 %
[2017-02-25 13:40] LABS: BUN/Creatinine Ratio 7 (6-26); Calcium 9.8 mg/dL (8.6-10.8); Carbon Dioxide 25 mEq/L (19-29); Chloride 106 mEq/L (98-109); Glucose 109 mg/dL (70-99); Osmolality,Calculated 290 (280-300); Sodium 141 mEq/L (136-145); eGFR For African Americans > 60 (> 60); eGFR For Non-African Americans > 60 (> 60)
[2017-02-25 13:41] LABS: Blood Urea Nitrogen 5 mg/dL (7-20)
[2017-02-25] MEDS ORDERED: Ipratropium/Albuterol Neb 3 ML IH PRN (16:10)
[2017-02-25] MEDS: Ipratropium/Albuterol Neb 3 ML IH SCH ×2 (16:21→23:02)
--- NOTE | 2017-02-25 16:37 | Internal Med History&Physical ---
Date of Encounter: 02/25/17 Time of Encounter: 16:35 Assessment and Plan (1) Acute exacerbation of chronic obstructive airways disease Current visit: Yes Status: Acute Patient with history of chronic tobacco abuse with prior bronchitis presenting with worsening shortness of breath and possibly exacerbation of COPD with acute on chronic bronchitis. Would treat with IV steroids, O2 supplementation, bronchodilators, doxycycline as patient is having increased sputum production. Moderate risk for complications. (2) Essential hypertension Current visit: Yes Status: Chronic Blood pressure is well controlled. Continue metoprolol (3) Tobacco abuse Current visit: Yes Status: Chronic Consult about cessation. Patient states she is trying to cut the number and frequency of her smoking. (4) GERD (gastroesophageal reflux disease) Current visit: No Status: Chronic Continue PPI Qualifiers: Esophagitis presence: esophagitis presence not specified Qualified Code(s) : K21.9 - Gastro-esophageal reflux disease without esophagitis (5) Hyperlipidemia Current visit: No Status: Chronic Continue statin Qualifiers: Hyperlipidemia type: mixed hyperlipidemia Qualified Code(s): E78.2 - Mixed hyperlipidemia (6) Pleuritic pain Current visit: Yes Status: Acute Patient having pleuritic pain related to persistent coughing. Will treat symptomatically. Internal Medicine - H&P: HPI Chief complaint: Shortness of breath Admitted From: Emergency Dept Plans for Post Hospital Care: Home History of present illness: Ms. Aguilar is a 61 year old female patient with a history of COPD/chronic bronchitis, essential hypertension, hyperlipidemia presented to the ER with complaints of shortness of breath and right lower back of her chest wall pain. She was admitted here 6 weeks back for COPD exacerbation and was discharged on steroids. Her shortness of breath in and initially improved but returned soon after. She began to have pain in her lower back rib regions since 3 days back and progressively getting worse. This pain gets worse with coughing and with deep inspiration. She has also been using her nebulizer treatments every 4 hours scheduled with not much improvement in her symptoms. She continues to smoke although she says she has cut down from 2 packs per day to 1 pack every 2 days. She denies significant fever chills or night sweats. She does have clear sputum production. No nausea or vomiting. No hemoptysis. No weight loss. No chest pain or palpitations besides for the rib pain. Past Med Surg Social Fam HX - Past Medical History Attestation: Yes The following information was validated with the patient. Source: patient Medical history: COPD, GERD, hyperlipidemia, hypertension, other Psychiatric history: no psych history - Past Surgical History Surgical History: other - Social History Smoking Status: Current every day smoker Smokeless Tobacco Status: No Alcohol use: occasionally Drug use: none - Family History Father Hx Family Cancer: Yes (prostate) Mother Living Status: Hx Family Cardiac Disorders: Yes Hx Family Respiratory Disorders: Yes (copd) Hx Family Endocrine Disorder: Yes Internal Medicine - H&P: Meds Albuterol Sulfate [Proair Hfa] 1 puff IH Q4H PRN #1 inh 12/20/16 [Rx] Esomeprazole Magnesium [Nexium] 40 mg PO QAM 12/31/16 [History] Multivit-Minerals/Folic/Ginkgo [One Daily For Women 50+ Adv Tb] 1 tab PO DAILY 12/31/16 [History] Ipratropium/Albuterol Neb [Duoneb] 3 ml IH QIDR PRN #50 inhsol 01/02/17 [Rx] Metoprolol [Lopressor] 12.5 mg PO BID #60 tablet 01/02/17 [Rx] Rosuvastatin Calcium [Crestor] 10 mg PO DAILY #30 tablet 01/02/17 [Rx] Budesonide/Formoterol 80/4.5 [Symbicort 80/4.5] 2 puff IH BID 02/25/17 [History ] Allergies ampicillin Allergy (Verified 12/20/16 16:26) Hives Sulfa (Sulfonamide Antibiotics) Allergy (Verified 12/31/16 18:44) Hives All Systems PM: A 10-system review of systems was performed and is negative for pertinent findings except as documented above in the HPI. - Constitutional Constitutional: no chills, no fever(s), no night sweats - EENT Eyes: no change in vision, no discharge, no pain, no photophobia Ears: no ear discharge, no ear pain, no tinnitus Nose, mouth and throat: no dysphagia, no nasal discharge, no neck pain, no sore throat - Cardiovascular Cardiovascular ROS IM: no chest pain, no diaphoresis, no dyspnea, no lightheadedness, no palpitations, no syncope - Respiratory Respiratory: cough, dyspnea, pain on inspiration, excessive phlegm production, pain with cough - Gastrointestinal Gastrointestinal: no abdominal pain, no diarrhea, no hematemesis, no hematochezia, no melena, no nausea, no vomiting - Genitourinary Genitourinary: no change in urinary stream, no dysuria, no flank pain, no hematuria - Musculoskeletal Musculoskeletal ROS IM: no numbness, no tingling - Integumentary Integumentary IM: no rash, no unusual bruising - Neurological Neurological ROS: no confusion, no convulsions, no focal weakness, no numbness, no tingling, no tremor(s) - Hematologic/Lymphatic Hematologic/Lymphatic: no easy bruising - Constitutional Vitals: Temp Pulse Resp BP Pulse Ox 97.9 F 85 18 109/80 94 02/25/17 12:26 02/25/17 15:24 02/25/17 16:21 02/25/17 15:53 02/25/17 16:21 General appearance: Present: cooperative, mild distress, A&O X 3, pleasant, obese, answers questions appropriately - Neck Neck exam general surgery: Present: supple, trachea midline. Absent: lymphadenopathy - Respiratory Respiratory exam: Present: chest wall tenderness (In the right lower back of her chest over the 10th 11th and 12th ribs), prolonged expiratory phase, rhonchi , wheezes. Absent: accessory muscle use, rales - Cardiovascular Cardiovascular exam: Present: RRR, +S1, +S2. Absent: diastolic murmur, gallop, rubs, systolic murmur - GI/Abdominal GI/Abdominal exam: Present: normal bowel sounds, soft, no peritoneal signs. Absent: distended, tenderness - Extremities Exam Extremities exam: Present: warm, radial pulses palpable and symetrical. Absent : calf tenderness, cyanotic, pedal edema - Neurological Exam Neurological exam: Present: alert, oriented X3, no focal deficits. Absent: facial droop, speech deficit - Skin Skin exam: Present: dry, intact Internal Med - H&P Results - Labs CBC & Chem 7: 02/25/17 13:10 02/25/17 13:10 - Impressions Impressions Chest X-Ray 02/25/17 12:54 IMPRESSION: No acute cardiopulmonary abnormality. D/ / Ramo Fernandez MD / Ramo Fernandez MD Interpreting Provider: Ramo Fernandez MD - Attending Attestation This document has been at least partially created by [employer] recognition technology by Dr. Bonilla. Errors in grammar, wording or other phrases may exist. If errors are found after the documentation is signed, they will be addressed individually in the addendum section of this document when appropriate.
[2017-02-25] MEDS ORDERED: traMADol 50 MG TABLET PO PRN (16:43)
[2017-02-25] MEDS ORDERED: Acetaminophen 325 MG TABLET PO PRN (16:43)
[2017-02-25] MEDS: *HR* Heparin 5,000 UNIT/ML VIAL SQ SCH (17:45)
[2017-02-25] MEDS: Doxycycline 100 MG CAPSULE PO SCH (20:26)
[2017-02-25] MEDS ORDERED: Mag Hydrox/Al Hydrox/Simeth 30 ML UDC PO ONE (22:30)
[2017-02-25] MEDS: methylPREDNISolone 125 MG/2 ML VIAL IVP SCH (22:46)
[2017-02-25] MEDS: Budesonide/Formoterol 80/4.5 MDI IH SCH (23:02)
[2017-02-26] MEDS ORDERED: Ondansetron 4 MG/2 ML VIAL IVP PRN (01:50)
[2017-02-26 02:57] LABS: Basophils % 0.2 %; Hemoglobin 13.7 g/dL (11.5-15.4); Immature Granulocytes % 0.8 % (0-4); Lymphocytes # 0.9 K/mcL (0.6-4.6); Lymphocytes % 9.4 %; Mean Corpuscular HGB Conc 32.6 g/dL (31.6-35.5); Mean Corpuscular Hemoglobin 28.2 pg (28.0-33.3); Mean Corpuscular Volume 86.6 fL (83.0-100.0); Mean Platelet Volume 12.4 fL (9.4-12.4); Monocytes # 0.2 K/mcL (0.0-1.3); Neutrophils # 8.8 K/mcL (1.6-8.9); Platelet Count 350 K/mcL (140-400); Red Blood Count 4.85 M/mcL (3.82-4.97); Red Cell Distribution Width 13.2 % (11.5-14.5); Segmented Neutrophils % 87.6 %
[2017-02-26 03:18] LABS: BUN/Creatinine Ratio 11 (6-26); Blood Urea Nitrogen 9 mg/dL (7-20); Calcium 9.7 mg/dL (8.6-10.8); Carbon Dioxide 25 mEq/L (19-29); Chloride 102 mEq/L (98-109); Glucose 160 mg/dL (70-99); Osmolality,Calculated 288 (280-300); Potassium 4.1 mEq/L (3.5-4.5); Sodium 138 mEq/L (136-145); eGFR For African Americans > 60 (> 60); eGFR For Non-African Americans > 60 (> 60)
[2017-02-26] MEDS: Ipratropium/Albuterol Neb 3 ML IH SCH ×4 (04:38→23:27)
[2017-02-26] MEDS: *HR* Heparin 5,000 UNIT/ML VIAL SQ SCH ×2 (05:08→16:50)
[2017-02-26 06:41] LABS: Adenovirus Not Detected (Not Detect); Bordetella Pertussis Not Detected (Not Detect); Chlamydophila pneumoniae Not Detected (Not Detect); Coronavirus 229E Not Detected (Not Detect); Coronavirus HKU1 Not Detected (Not Detect); Coronavirus NL63 Not Detected (Not Detect); Coronavirus OC43 Not Detected (Not Detect); Human Metapneumovirus Not Detected (Not Detect); Human Rhinovirus/Enterovirus Not Detected (Not Detect); Influenza A Subtype 2009 H1 Not Detected (Not Detect); Influenza A Untypeable Not Detected (Not Detect); Influenza B Not Detected (Not Detect); Mycoplasma pneumoniae Not Detected (Not Detect); Parainfluenza Virus 1 Not Detected (Not Detect); Parainfluenza Virus 2 Not Detected (Not Detect); Parainfluenza Virus 3 Not Detected (Not Detect); Parainfluenza Virus 4 Not Detected (Not Detect); Respiratory Syncytial Virus Not Detected (Not Detect)
[2017-02-26] MEDS: Pantoprazole 40 MG VIAL IVP SCH (07:50)
[2017-02-26] MEDS: Doxycycline 100 MG CAPSULE PO SCH ×2 (07:51→23:53)
[2017-02-26] MEDS: methylPREDNISolone 125 MG/2 ML VIAL IVP SCH ×2 (07:51→16:50)
[2017-02-26] MEDS: Budesonide/Formoterol 80/4.5 MDI IH SCH ×2 (11:58→23:28)
--- NOTE | 2017-02-26 13:47 | Internal Med Progress Note ---
Date of Encounter: 02/26/17 Time of Encounter: 10:25 - Assessment and plan (1) Acute exacerbation of chronic obstructive airways disease Current Visit: Yes Status: Acute Assessment and plan: No treatment for COPD steroids, doxycycline and bronchodilators and O2 supplementation. Moderate risk for complications. Patient may require home oxygen and will be evaluated for that prior to discharge. (2) Essential hypertension Current Visit: Yes Status: Chronic Assessment and plan: Blood pressure is well controlled at this time (3) Tobacco abuse Current Visit: Yes Status: Chronic (4) GERD (gastroesophageal reflux disease) Current Visit: No Status: Chronic Assessment and plan: Continue PPI Qualifiers: Esophagitis presence: esophagitis presence not specified Qualified Code(s) : K21.9 - Gastro-esophageal reflux disease without esophagitis (5) Hyperlipidemia Current Visit: No Status: Chronic Assessment and plan: Continue statin Qualifiers: Hyperlipidemia type: mixed hyperlipidemia Qualified Code(s): E78.2 - Mixed hyperlipidemia (6) Pleuritic pain Current Visit: Yes Status: Acute Assessment and plan: Likely from cough related to bronchitis. - Subjective Interval history: Patient continues to have some shortness of breath although this is improved compared to yesterday. She does complain of wheezing. No chest pain besides the rib pain that she has in the lower back of her chest on the right side. Continues to require O2 supplementation. - Constitutional Vitals: Temp Pulse Resp BP Pulse Ox 98 F 67 19 118/70 93 02/26/17 11:24 02/26/17 11:24 02/26/17 12:00 02/26/17 11:24 02/26/17 12:00 General appearance: Present: cooperative, mild distress, A&O X 3, pleasant, obese, answers questions appropriately - Neck Neck exam general surgery: Present: supple, trachea midline. Absent: lymphadenopathy - Respiratory Respiratory exam: Present: prolonged expiratory phase, wheezes. Absent: accessory muscle use, rales, rhonchi - Cardiovascular Cardiovascular exam: Present: RRR, +S1, +S2. Absent: diastolic murmur, gallop, rubs, systolic murmur - GI/Abdominal GI/Abdominal exam: Present: normal bowel sounds, soft, no peritoneal signs. Absent: distended, tenderness - Extremities Exam Extremities exam: Present: warm, radial pulses palpable and symetrical. Absent : calf tenderness, cyanotic, pedal edema - Neurological Exam Neurological exam: Present: alert, oriented X3, no focal deficits. Absent: facial droop, speech deficit - Skin Skin exam: Present: dry, intact Internal Medicine: Result - Labs CBC & Chem 7: 02/26/17 02:33 02/26/17 02:33 Labs: Short CBC 02/26/17 Range/Units 02:33 WBC 10.0 (4.3-11.1) K/mcL Hgb 13.7 (11.5-15.4) g/dL Hct 42.0 (35.3-44.9) % Plt Count 350 (140-400) K/mcL Neutrophils # 8.8 (1.6-8.9) K/mcL BMP 02/26/17 02:33 Sodium 138 Potassium 4.1 Chloride 102 Carbon Dioxide 25 BUN 9 Creatinine 0.80 Glucose 160 H Calcium 9.7 Consult Discharge Plan - Plan Additional Instructions: Follow-up with pulmonology in 1-2 weeks for diagnosis of COPD Referrals: Kimberley Richey, DISPLAY FABRICATOR [Primary Care Provider] - (web request 02/26/2017) - Attending Attestation This document has been at least partially created by [employer] recognition technology by Dr. Bonilla. Errors in grammar, wording or other phrases may exist. If errors are found after the documentation is signed, they will be addressed individually in the addendum section of this document when appropriate.
[2017-02-26] MEDS ORDERED: Melatonin 3 MG TABLET PO PRN (19:28)
[2017-02-27] MEDS: methylPREDNISolone 125 MG/2 ML VIAL IVP SCH ×2 (02:00→09:20)
[2017-02-27] MEDS: Ipratropium/Albuterol Neb 3 ML IH SCH ×2 (04:47→11:41)
[2017-02-27] MEDS: *HR* Heparin 5,000 UNIT/ML VIAL SQ SCH (06:45)
[2017-02-27 07:25] VITALS: BP 132/81
[2017-02-27] MEDS: Pantoprazole 40 MG VIAL IVP SCH (09:21)
[2017-02-27] MEDS: Doxycycline 100 MG CAPSULE PO SCH (09:21)
--- NOTE | 2017-02-27 09:44 | Discharge Summary ---
Date of Encounter: 02/27/17 Time of Encounter: 09:15 - Discharge Diagnosis (1) Acute exacerbation of chronic obstructive airways disease Priority: Primary Status: Acute (2) Essential hypertension Priority: Secondary Status: Chronic (3) Tobacco abuse Priority: Secondary Status: Chronic (4) GERD (gastroesophageal reflux disease) Priority: Secondary Status: Chronic Qualifiers: Esophagitis presence: esophagitis presence not specified Qualified Code(s) : K21.9 - Gastro-esophageal reflux disease without esophagitis (5) Hyperlipidemia Priority: Secondary Status: Chronic Qualifiers: Hyperlipidemia type: mixed hyperlipidemia Qualified Code(s): E78.2 - Mixed hyperlipidemia (6) Pleuritic pain Priority: Secondary Status: Acute - Discharge Medications Prescriptions: Doxycycline 100 mg PO BID #10 capsule predniSONE [PredniSONE] 10 mg PO DAILY 12 Days Home Medications: Albuterol Sulfate [Proair Hfa] 1 puff IH Q4H PRN #1 inh 12/20/16 [Rx] Esomeprazole Magnesium [Nexium] 40 mg PO QAM 12/31/16 [History] Multivit-Minerals/Folic/Ginkgo [One Daily For Women 50+ Adv Tb] 1 tab PO DAILY 12/31/16 [History] Ipratropium/Albuterol Neb [Duoneb] 3 ml IH QIDR PRN #50 inhsol 01/02/17 [Rx] Metoprolol [Lopressor] 12.5 mg PO BID #60 tablet 01/02/17 [Rx] Rosuvastatin Calcium [Crestor] 10 mg PO DAILY #30 tablet 01/02/17 [Rx] Budesonide/Formoterol 80/4.5 [Symbicort 80/4.5] 2 puff IH BID 02/25/17 [History ] Doxycycline 100 mg PO BID #10 capsule 02/27/17 [Rx] predniSONE [PredniSONE] 10 mg PO DAILY 12 Days 02/27/17 [Rx] Allergies/Adverse Reactions: Allergies ampicillin Allergy (Verified 12/20/16 16:26) Hives Sulfa (Sulfonamide Antibiotics) Allergy (Verified 12/31/16 18:44) Hives Date of admission: 02/25/17 15:31 Primary care physician: Kimberley Richey CNP Consults: 02/25/17 16:09 Consult to Nurse Navigator [CONS] Routine Comment: Discharging clinician: Ashlee Bonilla Anticipated date of discharge: 02/27/17 - Patient Status Disposition: Home, Self-Care Condition: Good Functional capacity at discharge: independent ambulation Overall status at discharge: patient is progressing back to baseline - Discharge Instructions Instructions: Chronic Obstructive Pulmonary Disease (DC) Follow Up With: Kimberley Richey CNP [Primary Care Provider] - (web request 02/26/2017) Additional Instructions: Follow-up with pulmonology in 1-2 weeks for diagnosis of COPD - Diet and Activity Activity: resume usual activities as tolerated, wear oxygen at all times Diet: low fat, low cholesterol, low salt diet Hospital course: Ms. Aguilar is a 61 year old female patient with a history of COPD who presented to the ER with complaints of worsening chest pain along with pleuritic pain involving her right upper back. She was hospitalized with acute exacerbation of COPD and was treated for this with bronchodilators, IV steroids , antibiotics and O2 supplementation with slow improvement in his symptoms. She is feeling much better today and is clinically stable for discharge home. I will also refer her to pulmonology for further evaluation and management of her COPD. She has never had formal pulmonary function testing. She is a chronic smoker and has been counseled about cessation. She is willing to make the effort and cut down on smoking. Patient was evaluated for home oxygen and did qualify for home oxygen due to her COPD with her sats dropping to 88% on room air. As such, home oxygen will be arranged for the patient. - Time Spent with Patient Total time spent providing and/or coordinating discharge services: Greater than 30 minutes (35 min) - Constitutional Vitals: Temp Pulse Resp BP Pulse Ox 98.1 F 65 18 132/81 95 02/27/17 07:23 02/27/17 07:23 02/27/17 07:23 02/27/17 07:23 02/27/17 07:23 General appearance: Present: cooperative, A&O X 3, pleasant, no acute distress, obese, answers questions appropriately - Neck Neck exam general surgery: Present: supple, trachea midline. Absent: lymphadenopathy - Respiratory Respiratory exam: Present: CTAB, wheezes. Absent: accessory muscle use, rales, rhonchi - Cardiovascular Cardiovascular exam: Present: RRR, +S1, +S2. Absent: diastolic murmur, gallop, rubs, systolic murmur - Extremities Exam Extremities exam: Present: warm, radial pulses palpable and symetrical. Absent : calf tenderness, cyanotic, pedal edema - Attending Attestation This document has been at least partially created by [employer] recognition technology by Dr. Bonilla. Errors in grammar, wording or other phrases may exist. If errors are found after the documentation is signed, they will be addressed individually in the addendum section of this document when appropriate.
[2017-02-27] MEDS: Budesonide/Formoterol 80/4.5 MDI IH SCH (11:41)
--- NOTE | 2017-02-28 06:55 | Electrocardiograph Report ---
[address] [address] Test Date: 2017-02-25 Pat Name: Isabel Aguilar Department: 105 Room: 2A44 Gender: F Chute Operator: [id number] : 1955 Requested By: Marcy Horvath Order Number: [id number] Reading MD: Rodriguez Silva MD Measurements Intervals [place] Rate: 71 P: 44 MD: 128 QRS: 38 QRSD: 89 T: 43 QT: 389 QTc: 411 Interpretive Statements SINUS RHYTHM Electronically Signed On 02-28-2017 6:53:48 EDT by Rodriguez Silva MD
== END 2017-02-27 12:55 | disposition home or self-care (01) ==
LOC: 2ANU 12:25 → EMEROO 12:25 → 2ANU 15:55
PROVIDERS: ADMIT Internal Medicine; ATTEND Internal Medicine

== ENCOUNTER 2017-11-06 10:56 | Inpatient (IN) ==
[2017-11-06] MEDS ORDERED: Ipratropium/Albuterol Neb 3 ML IH ONE (11:14)
[2017-11-06] MEDS ORDERED: methylPREDNISolone 125 MG/2 ML VIAL IVP ONE (11:14)
--- NOTE | 2017-11-06 11:19 | Emergency Department Note ---
Disposition Clinical Impression: Acute exacerbation of chronic obstructive airways disease Disposition: Admitted As Inpatient Condition: Fair Referrals: Kimberley Richey, SURVEILLANCE SUPERVISOR [Primary Care Provider] - Forms: ED Satisfaction Letter Time of Disposition: 14:11 SOB HPI - General Chief Complaint: ED Shortness of Breath/Dyspnea Stated Complaint: I can't Breathe Time Seen by Provider: 11/06/17 11:13 Source: patient Limitations: no limitations Nursing Notes Reviewed: Yes Vital Signs Reviewed: Yes - History of Present Illness 61-year-old history of COPD and is oxygen dependent comes in with increasing shortness of breath and wheezing and cough. Pt Subjective Complaint: shortness of breath, cough Onset (ago): Just FIRMWARE ARCHITECT Severity: moderate Improves with: nothing Worsens with: exertion Known history of: COPD Treatment prior to arrival: oxygen Cough present: Yes Cough Description: Involuntary Cough Frequency: Intermittent - Related Data Home Medications Medication Instructions Recorded Confirmed Esomeprazole Magnesium [Nexium] 40 mg PO QAM 12/31/16 04/22/17 Multivit-Minerals/Folic/Ginkgo 1 tab PO DAILY 12/31/16 04/22/17 [One Daily For Women 50+ Adv Tb] Budesonide/Formoterol 80/4.5 2 puff IH BID 02/25/17 04/22/17 [Symbicort 80/4.5] Guaifenesin [Mucinex] 600 mg PO DAILY 04/22/17 04/22/17 Roflumilast [Daliresp] 500 mcg PO DAILY 04/22/17 04/22/17 Tiotropium [Spiriva] 1 each IH DAILY 04/22/17 04/22/17 Previous Rx's Medication Instructions Recorded Albuterol Sulfate [Proair Hfa] 1 puff IH Q4H PRN #1 inh 12/20/16 Ipratropium/Albuterol Neb [Duoneb] 3 ml IH QIDR PRN #50 inhsol 01/02/17 Metoprolol [Lopressor] 12.5 mg PO BID #60 tablet 01/02/17 Rosuvastatin Calcium [Crestor] 10 mg PO DAILY #30 tablet 01/02/17 Allergies Allergy/AdvReac Type Severity Reaction Status Date / Time ampicillin Allergy Hives Verified 04/22/17 09:40 Sulfa (Sulfonamide Allergy Hives Verified 04/22/17 09:40 Antibiotics) All systems ED: reviewed and negative except as stated. Constitutional: Denies: fever, chills, weakness, weight change Eyes: Denies: eye pain, eye discharge, vision change ENT ED: Denies: ear pain, throat pain, dental pain, hearing loss, epistaxis, congestion, dysphagia Cardiovascular: Denies: chest pain, palpitations, dyspnea on exertion, edema, syncope Respiratory: Reports: cough, dyspnea, wheezes. Denies: hemoptysis, stridor Gastrointestinal: Denies: abdominal pain, nausea, vomiting, diarrhea, constipation, hematemesis, melena, hematochezia Genitourinary: Denies: dysuria, frequency, hematuria, discharge Musculoskeletal: Denies: back pain, neck pain, arthralgia, myalgia Integumentary: Denies: rash, abrasion, lesions Neurological: Denies: headache, weakness, numbness, paresthesias, confusion, abnormal gait, vertigo Psychiatric: Denies: anxiety, depression, suicidal thoughts, homicidal thoughts , auditory hallucinations, visual hallucinations Endocrine: Denies: fatigue Hematological/Lymphatic: Denies: easy bleeding, easy bruising Allergic/Immunologic: Denies: facial swelling, urticaria Past Medical History - Past Medical History Medical history: Reports: COPD, GERD, hyperlipidemia, hypertension, other Surgical history: Reports: hysterectomy, other Psychiatric history: Reports: no psych history - Social History Smoking Status: Current every day smoker Smokeless Tobacco Status: No Alcohol use: Reports: rarely Drug use: Reports: none Physical Exam - General Limitations: no limitations General appearance: alert - Head Head exam: atraumatic, normocephalic, normal inspection - Eye Eye exam: Present: normal appearance, PERRL, EOMI - ENT ENT exam: normal exam, normal oropharynx, mucous membranes moist - Neck Neck exam: Present: normal inspection, full ROM, trachea midline - Chest Chest inspection: Present: normal inspection, symmetric chest wall rise - Respiratory Respiratory exam: Present: wheezes, accessory muscle use, prolonged expiratory phase - Cardiovascular Cardiovascular exam: Present: regular rate, normal rhythm, normal heart sounds - Abdominal Exam Abdominal exam: Present: soft, Non-Tender. Absent: tenderness, distention, guarding, rebound, rigidity - Extremities Exam Extremities exam: Present: normal inspection, full ROM. Absent: tenderness, pedal edema - Expanded Lower Extremity Exam Neurovascular/Tendon exam: Absent: motor deficit, sensory deficit, tendon deficit Gait: observed and normal - Back Exam Back exam: Present: normal inspection, full ROM. Absent: tenderness - Neurological Exam Neurological exam: Present: alert, oriented X3 - Psychiatric Psychiatric exam: Present: normal affect, normal mood - Skin Skin exam: Present: warm, dry, intact, normal color Course - Reevaluation(s) Reevaluation #1: 61-year-old female with history COPD comes in with increasing shortness of breath. Chest x-rays negative. Lab work is essentially normal. She did have some improvement with steroids and eating treatments or we'll admit her for further evaluation. Time: 14:10 - Consultations Consultation #1: Discussed with , elena. Time: 14:10 Vital Signs Temperature 98.1 F 11/06/17 11:08 Pulse Rate 108 11/06/17 11:08 Respiratory Rate 18 11/06/17 11:08 Blood Pressure 144/86 11/06/17 11:08 O2 Sat by Pulse Oximetry 93 11/06/17 11:08 Temperature 98.1 F 11/06/17 11:08 Pulse Rate 66 11/06/17 13:00 Respiratory Rate 20 11/06/17 13:00 Blood Pressure 142/91 11/06/17 13:00 O2 Sat by Pulse Oximetry 97 11/06/17 13:00 Oxygen Delivery Oxygen Delivery Nasal Cannula Shortness of Breath/Dyspnea - Lab Data Lab results reviewed: Yes I reviewed the patient's lab results. Result diagrams: 11/06/17 11:30 11/06/17 11:30 Lab Results 11/06/17 11/06/17 11/06/17 Range/Units 11:30 11:30 11:30 WBC 8.1 (4.3-11.1) K/mcL RBC 4.93 (3.82-4.97) M/mcL Hgb 13.6 (11.5-15.4) g/dL Hct 42.0 (35.3-44.9) % MCV 85.2 (83.0-100.0) fL MCH 27.6 L (28.0-33.3) pg MCHC 32.4 (31.6-35.5) g/dL RDW 13.7 (11.5-14.5) % Plt Count 386 (140-400) K/mcL MPV 11.6 (9.4-12.4) fL Immature Gran % 0.4 (0-4) % Seg Neutrophils % 57.4 % Lymphocytes % 24.8 % Monocytes % 6.8 % Eosinophils % 8.6 % Basophils % 2.0 % Neutrophils # 4.7 (1.6-8.9) K/mcL Lymphocytes # 2.0 (0.6-4.6) K/mcL Monocytes # 0.6 (0.0-1.3) K/mcL Eosinophils # 0.7 H (0.0-0.6) K/mcL Basophils # 0.2 (0.0-0.2) K/mcL Sodium 141 (136-145) mEq/L Potassium 3.8 (3.5-5.1) mEq/L Chloride 104 (98-107) mEq/L Carbon Dioxide 27 (23-29) mEq/L BUN 6 L (8-23) mg/dL Creatinine 0.66 (0.60-1.20) mg/dL Est GFR ( Amer) > 60 (> 60) Est GFR (Non-Af Amer) > 60 (> 60) BUN/Creatinine Ratio 9 (6-26) Glucose 114 H (70-105) mg/dL Calculated Osmolality 290 (280-300) Lactic Acid 2.6 H (0.5-2.2) mmol/L Calcium 9.5 (8.6-10.3) mg/dL Troponin I (< 0.04) ng/mL B-Natriuretic Peptide (Less than 100) pg/mL 11/06/17 11/06/17 11/06/17 Range/Units 11:30 11:30 12:59 WBC (4.3-11.1) K/mcL RBC (3.82-4.97) M/mcL Hgb (11.5-15.4) g/dL Hct (35.3-44.9) % MCV (83.0-100.0) fL MCH (28.0-33.3) pg MCHC (31.6-35.5) g/dL RDW (11.5-14.5) % Plt Count (140-400) K/mcL MPV (9.4-12.4) fL Immature Gran % (0-4) % Seg Neutrophils % % Lymphocytes % % Monocytes % % Eosinophils % % Basophils % % Neutrophils # (1.6-8.9) K/mcL Lymphocytes # (0.6-4.6) K/mcL Monocytes # (0.0-1.3) K/mcL Eosinophils # (0.0-0.6) K/mcL Basophils # (0.0-0.2) K/mcL Sodium (136-145) mEq/L Potassium (3.5-5.1) mEq/L Chloride (98-107) mEq/L Carbon Dioxide (23-29) mEq/L BUN (8-23) mg/dL Creatinine (0.60-1.20) mg/dL Est GFR ( Amer) (> 60) Est GFR (Non-Af Amer) (> 60) BUN/Creatinine Ratio (6-26) Glucose (70-105) mg/dL Calculated Osmolality (280-300) Lactic Acid 1.6 (0.5-2.2) mmol/L Calcium (8.6-10.3) mg/dL Troponin I < 0.03 (< 0.04) ng/mL B-Natriuretic Peptide 30 (Less than 100) pg/mL - Radiology Data Radiology results reviewed: Yes I reviewed the patient's radiology results. Chest X-Ray 11/06/17 11:15 IMPRESSION: Stable negative chest. D/ / Jeanne Hopson MD / Jeanne Hopson MD Interpreting Provider: Jeanne Hopson MD - EKG Data EKG attestation: Yes I reviewed and interpreted this EKG. EKG shows normal: Reports: sinus rhythm Rate: Reports: normal Rhythm: Reports: NSR [place]/QRS: Reports: normal Interpretation: Reports: no acute changes
[2017-11-06 11:43] LABS: Basophils # 0.2 K/mcL (0.0-0.2); Eosinophils # 0.7 K/mcL (0.0-0.6); Eosinophils % 8.6 %; Hemoglobin 13.6 g/dL (11.5-15.4); Immature Granulocytes % 0.4 % (0-4); Lymphocytes % 24.8 %; Mean Corpuscular HGB Conc 32.4 g/dL (31.6-35.5); Mean Corpuscular Hemoglobin 27.6 pg (28.0-33.3); Mean Corpuscular Volume 85.2 fL (83.0-100.0); Mean Platelet Volume 11.6 fL (9.4-12.4); Monocytes # 0.6 K/mcL (0.0-1.3); Monocytes % 6.8 %; Neutrophils # 4.7 K/mcL (1.6-8.9); Platelet Count 386 K/mcL (140-400); Red Blood Count 4.93 M/mcL (3.82-4.97); Red Cell Distribution Width 13.7 % (11.5-14.5); Segmented Neutrophils % 57.4 %
[2017-11-06 11:59] LABS: BUN/Creatinine Ratio 9 (6-26); Blood Urea Nitrogen 6 mg/dL (8-23); Calcium 9.5 mg/dL (8.6-10.3); Carbon Dioxide 27 mEq/L (23-29); Chloride 104 mEq/L (98-107); Glucose 114 mg/dL (70-105); Osmolality,Calculated 290 (280-300); Potassium 3.8 mEq/L (3.5-5.1); Sodium 141 mEq/L (136-145); eGFR For African Americans > 60 (> 60); eGFR For Non-African Americans > 60 (> 60)
[2017-11-06 13:57] LABS: Bilirubin,Urine Negative (Negative); Blood,Urine Negative (Negative); Clarity,Urine Clear (Clear); Color,Urine Yellow (Yellow); Glucose,Urine (UA) Normal (Normal); Ketones,Urine Negative (Negative); Leukocyte Esterase,Urine Negative (Negative); Nitrite,Urine Negative (Negative); Protein,Urine Trace mg/dL (Neg-Trace); Specific Gravity,Urine 1.018 (1.010-1.025); Urobilinogen,Urine Normal (Normal)
[2017-11-06 13:59] LABS: Bacteria,Urine None Seen per hpf (None-Few); Hyaline Casts,Urine None Seen per lpf (None-Few); RBC,Urine 0-3 per hpf (0-3); Squamous Epithelial Cell,Urine Many per lpf (None-Few); WBC,Urine 0-3 per hpf (0-3)
[2017-11-06] MEDS ORDERED: Acetaminophen 325 MG TABLET PO PRN (15:29)
[2017-11-06] MEDS ORDERED: Naloxone 0.4 MG/ML INJ IVP PRN (15:29)
[2017-11-06] MEDS ORDERED: Albuterol 2.5 MG/3 ML NEBULIZER IH PRN (15:29)
[2017-11-06] MEDS ORDERED: *HR* HYDROcodone/Acet 5/325 mg TABLET PO PRN (15:29)
--- NOTE | 2017-11-06 15:34 | Internal Med History&Physical ---
Date of Encounter: 11/06/17 Time of Encounter: 15:33 Assessment and Plan (1) DVT prophylaxis Current visit: Yes Status: Acute Encourage early ambulation. (2) Acute exacerbation of chronic obstructive airways disease Current visit: Yes Status: Acute Increasing shortness of breath, tachypnea and wheezing secondary to COPD exacerbation. No evidence of URI. No change in sputum production or quality. No support for using antibiotics. We will treat her with IV steroids, inhaled bronchodilators and oxygen by nasal cannula. (3) Essential hypertension Current visit: No Status: Chronic Continue with metoprolol (4) Hyperlipidemia Current visit: No Status: Chronic Continue with Crestor. Qualifiers: Hyperlipidemia type: mixed hyperlipidemia Qualified Code(s): E78.2 - Mixed hyperlipidemia (5) Tobacco abuse Current visit: No Status: Chronic I advised smoking cessation. Provide nicotine replacement therapy. (6) Chronic respiratory failure with hypoxia Current visit: Yes Status: Acute Continue oxygen by nasal cannula. She was briefly tachypneic with respirations rate up to 28 now down between 16 and 22. No support for acute hypoxic respiratory failure. Using 2 L/m oxygen by nasal cannula. O2 sat 93-97. Internal Medicine - H&P: HPI Chief complaint: Shortness of breath Admitted From: Emergency Dept Plans for Post Hospital Care: Home History of present illness: Ms. Aguilar is a 61 year old female with past medical history significant for hypertension, COPD and respiratory failure on home oxygen who presented to the hospital for worsening shortness of breath. She has been more short of breath than usual for the last 5 days, progressively worse, today her symptoms were severe, she was completely out of breath walking to the bathroom. Reports associated cough productive of white sputum which says it is normal for her. Denies fevers chills and chest pain. Her symptoms improved with nebulized albuterol. In the emergency department she had a chest x-ray which was negative, she was wheezing profusely and was tachypneic and received treatment with DuoNeb and steroids and referred for admission. A 10 point review of systems was negative except as stated above. Surgical history: Back surgery Family history: Patient's father suffered with prostate cancer, patient's sister suffered with coronary artery disease Social history: Long-term heavy smoker of 2 packs a day, currently smoking 10 cigarettes a day. Denies alcohol and drug use. Past Med Surg Social Fam HX - Past Medical History Medical history: COPD, GERD, hyperlipidemia, hypertension, other Psychiatric history: no psych history - Past Surgical History Surgical History: hysterectomy, other - Social History Smoking Status: Current every day smoker Packs per day: 1/2 Smokeless Tobacco Status: No Alcohol use: rarely Drug use: none - Family History Father Name: Thanh Callaway Living Status: Age at : 66 Cause of : cancer chf Hx Family Cardiac Disorders: Yes Hx Family Cancer: Yes Mother Living Status: Hx Family Cardiac Disorders: Yes Hx Family Respiratory Disorders: Yes (copd) Hx Family Endocrine Disorder: Yes Internal Medicine - H&P: Meds Albuterol Sulfate [Proair Hfa] 1 puff IH Q4H PRN #1 inh 12/20/16 [Rx] Esomeprazole Magnesium [Nexium] 40 mg PO QAM 12/31/16 [History] Multivit-Minerals/Folic/Ginkgo [One Daily For Women 50+ Adv Tb] 1 tab PO DAILY 12/31/16 [History] Ipratropium/Albuterol Neb [Duoneb] 3 ml IH QIDR PRN #50 inhsol 01/02/17 [Rx] Metoprolol [Lopressor] 12.5 mg PO BID #60 tablet 01/02/17 [Rx] Rosuvastatin Calcium [Crestor] 10 mg PO DAILY #30 tablet 01/02/17 [Rx] Budesonide/Formoterol 80/4.5 [Symbicort 80/4.5] 2 puff IH BID 02/25/17 [History ] Guaifenesin [Mucinex] 600 mg PO DAILY 04/22/17 [History] Roflumilast [Daliresp] 500 mcg PO DAILY 04/22/17 [History] Tiotropium [Spiriva] 18 mcg IH DAILY 04/22/17 [History] BuPROPion XL (24 HR) [Wellbutrin XL] 150 mg PO DAILY 11/06/17 [History] 3 Allergy/AdvReac Type Severity Reaction Status Date / Time ampicillin Allergy Hives Verified 04/22/17 09:40 Sulfa (Sulfonamide Allergy Hives Verified 04/22/17 09:40 Antibiotics) All Systems PM: A 10-system review of systems was performed and is negative for pertinent findings except as documented above in the HPI. - Constitutional Vitals: Temp Pulse Resp BP Pulse Ox 97.8 F 66 16 161/89 95 11/06/17 14:48 11/06/17 14:48 11/06/17 14:48 11/06/17 14:48 11/06/17 14:48 General appearance: Present: A&O X 3, no acute distress, answers questions appropriately - Eye Eye exam: Present: PERRL, conjuntiva pink, sclera anicteric Pupils: Present: PERRL - Neck Neck exam general surgery: Present: supple, trachea midline. Absent: lymphadenopathy - Respiratory Respiratory exam: Present: prolonged expiratory phase, wheezes. Absent: accessory muscle use, rales, rhonchi - Cardiovascular Cardiovascular exam: Present: RRR, +S1, +S2. Absent: diastolic murmur, gallop, rubs, systolic murmur - GI/Abdominal GI/Abdominal exam: Present: normal bowel sounds, soft, no peritoneal signs. Absent: distended, tenderness - Extremities Exam Extremities exam: Present: warm, radial pulses palpable and symmetrical. Absent : calf tenderness, cyanotic, pedal edema - Neurological Exam Neurological exam: Present: CN II-XII intact, oriented X3, no focal deficits. Absent: pronater drift, facial droop, speech deficit - Skin Skin exam: Present: dry, intact Internal Med - H&P Results - Labs CBC & Chem 7: 11/06/17 11:30 11/06/17 11:30
[2017-11-06] MEDS: Ipratropium/Albuterol Neb 3 ML IH SCH ×2 (15:57→20:56)
[2017-11-06] MEDS: Nicotine 14 MG PATCH.TD24 TD SCH (17:36)
[2017-11-06] MEDS: methylPREDNISolone 125 MG/2 ML VIAL IVP SCH ×2 (17:37→23:49)
[2017-11-06] MEDS: Budesonide/Formoterol 80/4.5 MDI IH SCH (20:56)
[2017-11-06] MEDS ORDERED: *HR* Dextrose 50 % in Water (Syg) 50 ML SYRINGE IVP PRN (21:38)
[2017-11-06] MEDS ORDERED: Dextrose Gel 15 GM/37.5 ML TUBE PO PRN ×2 (21:38)
[2017-11-06] MEDS ORDERED: D5% in Water 1,000 ML IVC PRN (21:38)
[2017-11-06] MEDS: Insulin LISPRO 300 UNITS/3 ML VIAL SQ SCH (22:00)
[2017-11-07] MEDS: Ipratropium/Albuterol Neb 3 ML IH SCH ×6 (00:20→20:01)
[2017-11-07 04:51] LABS: Basophils % 0.3 %; Hematocrit 40.7 % (35.3-44.9); Hemoglobin 12.8 g/dL (11.5-15.4); Immature Granulocytes % 0.9 % (0-4); Lymphocytes % 12.4 %; Mean Corpuscular HGB Conc 31.4 g/dL (31.6-35.5); Mean Corpuscular Hemoglobin 26.7 pg (28.0-33.3); Mean Platelet Volume 12.1 fL (9.4-12.4); Monocytes # 0.2 K/mcL (0.0-1.3); Monocytes % 2.1 %; Neutrophils # 6.5 K/mcL (1.6-8.9); Platelet Count 404 K/mcL (140-400); Red Blood Count 4.79 M/mcL (3.82-4.97); Red Cell Distribution Width 13.4 % (11.5-14.5); Segmented Neutrophils % 84.3 %
[2017-11-07 05:03] LABS: BUN/Creatinine Ratio 13 (6-26); Blood Urea Nitrogen 9 mg/dL (8-23); Calcium 9.6 mg/dL (8.6-10.3); Carbon Dioxide 26 mEq/L (23-29); Chloride 104 mEq/L (98-107); Glucose 150 mg/dL (70-105); Osmolality,Calculated 286 (280-300); Potassium 4.3 mEq/L (3.5-5.1); Sodium 137 mEq/L (136-145); eGFR For African Americans > 60 (> 60); eGFR For Non-African Americans > 60 (> 60)
[2017-11-07] MEDS: methylPREDNISolone 125 MG/2 ML VIAL IVP SCH ×3 (05:57→18:10)
[2017-11-07] MEDS: Budesonide/Formoterol 80/4.5 MDI IH SCH ×2 (07:52→20:01)
[2017-11-07] MEDS: BuPROPion XL (24 HR) 150 MG TABLET PO SCH (08:33)
[2017-11-07] MEDS: (Roflumilast [Daliresp] 500 MCG) PO SCH (08:33)
[2017-11-07] MEDS: Insulin LISPRO 300 UNITS/3 ML VIAL SQ SCH ×4 (08:34→21:11)
[2017-11-07] MEDS: Nicotine 14 MG PATCH.TD24 TD SCH (08:35)
--- NOTE | 2017-11-07 09:45 | Internal Med Progress Note ---
Date of Encounter: 11/07/17 Time of Encounter: 09:43 - Assessment and plan (1) Acute exacerbation of chronic obstructive airways disease Current Visit: Yes Status: Acute Assessment and plan: presented with pogressive dyspea, increasing cough and wheezing he began approximately 5 days ago Has a histoy of [id number] obstructive ventilatory deficit and follows with pulmonology most recent admission for COPD exacerbation and Acute on chronic respiratory failure with hypoxia was in 04/04 continues to smoke, moderate risk for complications. Wears home oxygen - Continue bronchodilators - Continue IV steroids - Continue respiratory support PRN with NC to maintain Spo2 greater than 90% - Respiratory infection panel (2) Chronic respiratory failure with hypoxia Current Visit: Yes Status: Acute Assessment and plan: Follows with pulmonology (3) Essential hypertension Current Visit: Yes Status: Chronic Assessment and plan: stable, continue antiHTN medications (4) Hyperlipidemia Current Visit: Yes Status: Chronic Assessment and plan: Continue crestor Qualifiers: Hyperlipidemia type: mixed hyperlipidemia Qualified Code(s): E78.2 - Mixed hyperlipidemia (5) Tobacco abuse Current Visit: Yes Status: Chronic Assessment and plan: Discussed smoking cessation. Patient reports she is now smoking less than 1 PPD. She does now wish to quit at this time. (6) DVT prophylaxis Current Visit: Yes Status: Acute Assessment and plan: Heparin 5000 units SC BID - Time Spent With Patient less than 15 minutes - Subjective Interval history: She continues to have some shortness of breath but reports that she has significantly improved since yesterday. She is continuing to c/o wheezing. Denies any chest pain. Her cough has decreased as has her sputum productions. Is currently resting comfortably on room air and in no distress. She reports that she is almost at her baseline - Constitutional Vitals: Temp Pulse Resp BP Pulse Ox 98.2 F 72 16 127/77 95 11/07/17 07:22 11/07/17 07:22 11/07/17 07:54 11/07/17 07:22 11/07/17 08:43 General appearance: Present: A&O X 3, no acute distress, answers questions appropriately - Head Head exam: Present: atraumatic, normocephalic - Respiratory Respiratory exam: Present: decreased breath sounds, CTAB, wheezes (expiratory wheezes B/L lobes). Absent: accessory muscle use, chest wall tenderness, rales , respiratory distress, rhonchi, tachypnea - Cardiovascular Cardiovascular exam: Present: RRR, +S1, +S2. Absent: diastolic murmur, gallop, rubs, systolic murmur - Extremities Exam Extremities exam: Present: warm, radial pulses palpable and symmetrical. Absent : calf tenderness, cyanotic, pedal edema - Neurological Exam Neurological exam: Present: alert, oriented X3. Absent: facial droop, speech deficit - Skin Skin exam: Present: dry, intact Internal Medicine: Result - Labs CBC & Chem 7: 11/07/17 04:08 11/07/17 04:08 Labs: Short CBC 11/07/17 Range/Units 04:08 WBC 7.8 (4.3-11.1) K/mcL Hgb 12.8 (11.5-15.4) g/dL Hct 40.7 (35.3-44.9) % Plt Count 404 H (140-400) K/mcL Neutrophils # 6.5 (1.6-8.9) K/mcL BMP 11/07/17 04:08 Sodium 137 Potassium 4.3 Chloride 104 Carbon Dioxide 26 BUN 9 Creatinine 0.67 Glucose 150 H Calcium 9.6 Cardiac Enzymes 11/06/17 11/06/17 Range/Units 16:07 21:00 Troponin I < 0.03 < 0.03 (< 0.04) ng/mL Consult Discharge Plan - Plan Referrals: Kimberley Richey, [employer] [Primary Care Provider] -
--- NOTE | 2017-11-07 14:05 | Pulmonology Consult Note ---
Date of Encounter: 11/07/17 Time of Encounter: 14:00 Assessment and Plan (1) Acute exacerbation of chronic obstructive airways disease Current Visit: Yes Status: Acute Patient is presenting with one of her COPD exacerbations , to continue the current bronchodilator regimen and antibiotics. CXR doesnt show any evidence of consolidation or pulmonary edema . Will continue CPAP at night if there is worsening of respiratory distress will change to BIPAP prn 02/05 . To continue the steroid regimen . (2) Acute respiratory failure Current Visit: Yes Status: Acute Patient is presenting with acute hypoxic respiratory failure most likely COPD exacerbation will liberate O2 at rest to keep SPO2 around 92% she might need O2 on exertion on discharge till the airway inflammation settle in . Will need prolong steroid taper over 12 days on discharge will discuss with patient aout chronic macrolide therapy MWF Azithromycin . Will continue to follow . Qualifiers: Respiratory failure complication: hypoxia Qualified Code(s): J96.01 - Acute respiratory failure with hypoxia History of Present Illness Consult date: 11/07/17 Requesting physician: Annabel Merritt Reason for consult: dyspnea, cough, COPD, other (COPD exacerbation ) Chief complaint: Cough and increased shortness of breadth History of present illness: 61 year old female is a patient of [facility] patient has moderate to severe COPD with FEV1 of 48% with post bronchodilator FEV1 of 58% patient is Grade D COPD with multiple COPD exacerbations , recently diagnosed ELEANOR on CPAP of 7 cm H2O comes with 1 week worsening of shortness of breadth with increased cough and sputum production denies any hemoptysis her three grand babies had RSV infection she was around them , he didnt call the office for antibiotics and steroids since she usualljy do call the office , denies any orthopnea or PND , denies any pedal edema , denies any chest pain or palpitations ,denies any GI or Neuro symptoms . Pulmonary was consulted for management for COPD exacerbation and for acute hypoxic respiratory failure . Past Med Surg Social Fam HX - Past Medical History Medical history: COPD, GERD, hyperlipidemia, hypertension, other Psychiatric history: no psych history - Past Surgical History Surgical History: hysterectomy, other - Social History Smoking Status: Current every day smoker Packs per day: 1/2 Smokeless Tobacco Status: No Alcohol use: rarely Drug use: none - Family History Father Name: Thanh Callaway Living Status: Age at : 66 Cause of : cancer chf Hx Family Cardiac Disorders: Yes Hx Family Cancer: Yes Mother Living Status: Hx Family Cardiac Disorders: Yes Hx Family Respiratory Disorders: Yes (copd) Hx Family Endocrine Disorder: Yes Medications and Allergies Albuterol Sulfate [Proair Hfa] 1 puff IH Q4H PRN #1 inh 12/20/16 [Rx] Esomeprazole Magnesium [Nexium] 40 mg PO QAM 12/31/16 [History] Multivit-Minerals/Folic/Ginkgo [One Daily For Women 50+ Adv Tb] 1 tab PO DAILY 12/31/16 [History] Ipratropium/Albuterol Neb [Duoneb] 3 ml IH QIDR PRN #50 inhsol 01/02/17 [Rx] Metoprolol [Lopressor] 12.5 mg PO BID #60 tablet 01/02/17 [Rx] Rosuvastatin Calcium [Crestor] 10 mg PO DAILY #30 tablet 01/02/17 [Rx] Budesonide/Formoterol 80/4.5 [Symbicort 80/4.5] 2 puff IH BID 02/25/17 [History ] Guaifenesin [Mucinex] 600 mg PO DAILY 04/22/17 [History] Roflumilast [Daliresp] 500 mcg PO DAILY 04/22/17 [History] Tiotropium [Spiriva] 18 mcg IH DAILY 04/22/17 [History] BuPROPion XL (24 HR) [Wellbutrin XL] 150 mg PO DAILY 11/06/17 [History] 3 Allergy/AdvReac Type Severity Reaction Status Date / Time ampicillin Allergy Hives Verified 04/22/17 09:40 Sulfa (Sulfonamide Allergy Hives Verified 04/22/17 09:40 Antibiotics) All Systems: All other review of systems were reviewed were found to be negative except what is mentioned in HPI. Physical Examination Vital Signs: Vital Signs, Last 4 Hours Temp Pulse Resp BP Pulse Ox 11/07/17 11:46 16 96 11/07/17 11:31 98.8 F 87 16 109/71 96 General appearance: other (Mild respiratory distress ) Effort: mildly labored Auscultation: bilateral: wheezes Extremities: no edema Results - Laboratory Findings CBC and BMP: 11/07/17 04:08 11/07/17 04:08 Abnormal lab findings: Abnormal lab results MCH 26.7 pg (28.0-33.3) L 11/07/17 04:08 MCHC 31.4 g/dL (31.6-35.5) L 11/07/17 04:08 Plt Count 404 K/mcL (140-400) H 11/07/17 04:08 Glucose 150 mg/dL (70-105) H 11/07/17 04:08 POC Glucose 186 (58-89) H 11/06/17 21:25 Ur Squamous Epith Cells Many per lpf (None-Few) H 11/06/17 13:46 - Clinical Findings Intake & Output: Intake & Output 11/06/17 11/07/17 11/07/17 23:59 07:59 15:59 Intake Total 600 / 600 Balance 600 / 600 Weight 73.482 kg Consult Discharge Plan - Plan Referrals: Kimberley Richey, [employer] [Primary Care Provider] -
[2017-11-07 14:22] LABS: Adenovirus Not Detected (Not Detect); Bordetella Pertussis Not Detected (Not Detect); Chlamydophila pneumoniae Not Detected (Not Detect); Coronavirus 229E Not Detected (Not Detect); Coronavirus HKU1 Not Detected (Not Detect); Coronavirus NL63 Not Detected (Not Detect); Coronavirus OC43 Not Detected (Not Detect); Human Metapneumovirus Not Detected (Not Detect); Human Rhinovirus/Enterovirus Not Detected (Not Detect); Influenza A Subtype 2009 H1 Not Detected (Not Detect); Influenza A Untypeable Not Detected (Not Detect); Influenza B Not Detected (Not Detect); Mycoplasma pneumoniae Not Detected (Not Detect); Parainfluenza Virus 1 Not Detected (Not Detect); Parainfluenza Virus 2 Not Detected (Not Detect); Parainfluenza Virus 3 Not Detected (Not Detect); Parainfluenza Virus 4 Not Detected (Not Detect); Respiratory Syncytial Virus Not Detected (Not Detect)
[2017-11-07] MEDS: Azithromycin 500 MG in D5% in Water 250 ML IVPB SCH (16:10)
[2017-11-07] MEDS: *HR* Heparin 5,000 UNIT/ML VIAL SQ SCH (18:10)
[2017-11-07] MEDS ORDERED: Mag Hydrox/Al Hydrox/Simeth 30 ML UDC PO PRN (20:26)
[2017-11-08] MEDS: Ipratropium/Albuterol Neb 3 ML IH SCH ×7 (00:12→22:42)
[2017-11-08] MEDS: methylPREDNISolone 125 MG/2 ML VIAL IVP SCH ×5 (00:22→23:59)
[2017-11-08] MEDS: *HR* Heparin 5,000 UNIT/ML VIAL SQ SCH ×2 (05:27→16:15)
[2017-11-08] MEDS: Budesonide/Formoterol 80/4.5 MDI IH SCH ×2 (08:06→19:38)
[2017-11-08] MEDS: Insulin LISPRO 300 UNITS/3 ML VIAL SQ SCH ×4 (08:52→21:00)
[2017-11-08] MEDS: (Roflumilast [Daliresp] 500 MCG) PO SCH (08:53)
[2017-11-08] MEDS: Nicotine 14 MG PATCH.TD24 TD SCH (08:54)
[2017-11-08] MEDS: BuPROPion XL (24 HR) 150 MG TABLET PO SCH (08:55)
--- NOTE | 2017-11-08 12:47 | Pulmonology Progress Note ---
Date of Encounter: 11/08/17 Time of Encounter: 12:30 Assessment and Plan (1) Acute exacerbation of chronic obstructive airways disease Current Visit: Yes Status: Acute To continue the current regimen of bronchodilators and steroids . To send home the home bronchodilator regimen , to send her home on prolonged steroid taper over 12 days . Will send her home on Every Tuesday , Tuesday , Tuesday 250 mg of Azithromycin . (2) Acute respiratory failure Current Visit: Yes Status: Acute To liberate O2 at rest might need O2 on exercise on discharge . Qualifiers: Respiratory failure complication: hypoxia Qualified Code(s): J96.01 - Acute respiratory failure with hypoxia Subjective Principal diagnosis: COPD exacerbation Interval history: Patient says she is doing lot better with less cough and sputum production. Objective PUL Vital signs: Last Vital Signs Temp 98.8 F 11/08/17 11:07 Pulse 70 11/08/17 11:07 Resp 16 11/08/17 11:07 BP 113/70 11/08/17 11:07 Pulse Ox 96 11/08/17 11:07 Auscultation: bilateral: wheezes Results - Laboratory Findings CBC and BMP: 11/07/17 04:08 11/07/17 04:08 Abnormal lab findings: Abnormal lab results MCH 26.7 pg (28.0-33.3) L 11/07/17 04:08 MCHC 31.4 g/dL (31.6-35.5) L 11/07/17 04:08 Plt Count 404 K/mcL (140-400) H 11/07/17 04:08 Glucose 150 mg/dL (70-105) H 11/07/17 04:08 POC Glucose 178 (58-89) H 11/07/17 17:19 Ur Squamous Epith Cells Many per lpf (None-Few) H 11/06/17 13:46 - Clinical Findings Intake & Output: Intake & Output 11/07/17 11/08/17 11/08/17 23:59 07:59 15:59 Intake Total 240 / 240 Balance 240 / 240 Weight 73.482 kg Consult Discharge Plan - Plan Referrals: Kimberley Richey, [employer] [Primary Care Provider] -
[2017-11-08] MEDS: Azithromycin 500 MG in D5% in Water 250 ML IVPB SCH (16:14)
--- NOTE | 2017-11-08 16:55 | Internal Med Progress Note ---
Date of Encounter: 11/08/17 Time of Encounter: 12:30 - Assessment and plan (1) Acute exacerbation of chronic obstructive airways disease Current Visit: Yes Status: Acute Assessment and plan: presented with progressive dyspea, increasing cough and wheezing he began approximately 5 days ago. Histoy of [id number] obstructive ventilatory deficit and follows with pulmonology. Most recent admission for COPD exacerbation and Acute on chronic respiratory failure with hypoxia was in 04/04. Continues to smoke, moderate risk for complications. Wears home oxygen. Resp PCR negative. Cont IV ATB, steroids, breathing tx's. Pulmonology following. (2) Chronic respiratory failure with hypoxia Current Visit: Yes Status: Acute Assessment and plan: Follows with pulmonology. Plan as noted above (3) Essential hypertension Current Visit: Yes Status: Chronic Assessment and plan: stable, cont home BP medications (4) DVT prophylaxis Current Visit: Yes Status: Acute Assessment and plan: Heparin - Subjective Interval history: Seen and examined at bedside. Still with c/o SOB. No CP. Wants to stay another night - Constitutional Vitals: Temp Pulse Resp BP Pulse Ox 98.6 F 76 16 110/64 95 11/08/17 15:25 11/08/17 15:25 11/08/17 16:26 11/08/17 15:25 11/08/17 16:26 General appearance: Present: A&O X 3, no acute distress, answers questions appropriately - Head Head exam: Present: atraumatic, normocephalic - Eye Eye exam: Present: PERRL, conjuntiva pink, sclera anicteric Pupils: Present: PERRL - Neck Neck exam general surgery: Present: supple, trachea midline. Absent: lymphadenopathy - Respiratory Respiratory exam: Present: CTAB. Absent: accessory muscle use, rales, rhonchi, wheezes - Cardiovascular Cardiovascular exam: Present: RRR, +S1, +S2. Absent: diastolic murmur, gallop, rubs, systolic murmur - GI/Abdominal GI/Abdominal exam: Present: normal bowel sounds, soft, no peritoneal signs. Absent: distended, tenderness - Extremities Exam Extremities exam: Present: warm, radial pulses palpable and symmetrical. Absent : calf tenderness, cyanotic, pedal edema - Neurological Exam Neurological exam: Present: CN II-XII intact, oriented X3, no focal deficits. Absent: pronater drift, facial droop, speech deficit - Skin Skin exam: Present: dry, intact Internal Medicine: Result - Labs CBC & Chem 7: 11/07/17 04:08 11/07/17 04:08 Consult Discharge Plan - Plan Referrals: Kimberley Richey, [employer] [Primary Care Provider] -
[2017-11-09] MEDS: Ipratropium/Albuterol Neb 3 ML IH SCH ×4 (04:35→15:34)
[2017-11-09] MEDS: methylPREDNISolone 125 MG/2 ML VIAL IVP SCH ×2 (06:11→12:29)
[2017-11-09] MEDS: *HR* Heparin 5,000 UNIT/ML VIAL SQ SCH (06:12)
[2017-11-09] MEDS: Budesonide/Formoterol 80/4.5 MDI IH SCH (08:08)
[2017-11-09] MEDS: Insulin LISPRO 300 UNITS/3 ML VIAL SQ SCH ×2 (09:25→12:29)
[2017-11-09] MEDS: Nicotine 14 MG PATCH.TD24 TD SCH (09:35)
[2017-11-09] MEDS: BuPROPion XL (24 HR) 150 MG TABLET PO SCH (09:35)
[2017-11-09] MEDS: (Roflumilast [Daliresp] 500 MCG) PO SCH (10:29)
--- NOTE | 2017-11-09 12:36 | Discharge Summary ---
Date of Encounter: 11/09/17 Time of Encounter: 12:35 - Discharge Diagnosis (1) Acute exacerbation of chronic obstructive airways disease Priority: Primary Status: Acute Comments: has known COPD. Presented with progressive dyspnea, increasing cough and wheezing. Found to be in COPD exacerbation; recently trated with ATB and steroids outpatient. CXR non-acute. REsp PCR negative. Symptoms improved with IV steroids and IV ATB. Evaluated by pulmonology who recommended continuing home bronchodilator regimen, prolonged steroid taper over 12 days and azithromycin every tuesday, tuesday and tuesday. Current smoker, smoking cessation advised. Discharge home on nicotine patch as well. Follow-up with pulmonology on 11/15/17 as previously planned. (2) Chronic respiratory failure with hypoxia Priority: Primary Status: Acute Comments: with underlying COPD. Wears o2 at home PRN. Adequately oxygenating on room air at time of discharge. Follow-up with pulmonology as noted above. (3) Essential hypertension Priority: Secondary Status: Chronic Comments: per hx. BP controlled. Cont home BP medication Hospital course: See assessment and plan for hospital course - Time Spent with Patient Total time spent providing and/or coordinating discharge services: Less than 30 minutes - Discharge Medications Prescriptions: Azithromycin 250 mg PO 3XW #12 tablet Nicotine Patch [Nicoderm] 14 mg TD DAILY #30 patch.[id number] predniSONE [PredniSONE] 10 mg PO DAILY #30 tablet Home Medications: Albuterol Sulfate [Proair Hfa] 1 puff IH Q4H PRN #1 inh 12/20/16 [Rx] Esomeprazole Magnesium [Nexium] 40 mg PO QAM 12/31/16 [History] Multivit-Minerals/Folic/Ginkgo [One Daily For Women 50+ Adv Tb] 1 tab PO DAILY 12/31/16 [History] Ipratropium/Albuterol Neb [Duoneb] 3 ml IH QIDR PRN #50 inhsol 01/02/17 [Rx] Metoprolol [Lopressor] 12.5 mg PO BID #60 tablet 01/02/17 [Rx] Rosuvastatin Calcium [Crestor] 10 mg PO DAILY #30 tablet 01/02/17 [Rx] Budesonide/Formoterol 80/4.5 [Symbicort 80/4.5] 2 puff IH BID 02/25/17 [History ] Guaifenesin [Mucinex] 600 mg PO DAILY 04/22/17 [History] Roflumilast [Daliresp] 500 mcg PO DAILY 04/22/17 [History] Tiotropium [Spiriva] 18 mcg IH DAILY 04/22/17 [History] BuPROPion XL (24 HR) [Wellbutrin Xl] 150 mg PO DAILY 11/06/17 [History] Azithromycin 250 mg PO 3XW #12 tablet 11/09/17 [Rx] Nicotine Patch [Nicoderm] 14 mg TD DAILY #30 patch.td24 11/09/17 [Rx] predniSONE [PredniSONE] 10 mg PO DAILY #30 tablet 11/09/17 [Rx] Allergies/Adverse Reactions: 3 Allergy/AdvReac Type Severity Reaction Status Date / Time ampicillin Allergy Hives Verified 04/22/17 09:40 Sulfa (Sulfonamide Allergy Hives Verified 04/22/17 09:40 Antibiotics) Date of admission: 11/08/17 14:31 Primary care physician: Kimberley Richey CNP Discharging clinician: Annabel Merritt Anticipated date of discharge: 11/09/17 - Constitutional Vitals: Temp Pulse Resp BP Pulse Ox 98.6 F 90 18 138/78 95 11/09/17 11:25 11/09/17 11:25 11/09/17 11:25 11/09/17 11:25 11/09/17 08:11 General appearance: Present: A&O X 3, no acute distress, answers questions appropriately - Head Head exam: Present: atraumatic, normocephalic - Eye Eye exam: Present: PERRL, conjuntiva pink, sclera anicteric Pupils: Present: PERRL - Neck Neck exam general surgery: Present: supple, trachea midline. Absent: lymphadenopathy - Respiratory Respiratory exam: Present: CTAB. Absent: accessory muscle use, rales, rhonchi, wheezes - Cardiovascular Cardiovascular exam: Present: RRR, +S1, +S2. Absent: diastolic murmur, gallop, rubs, systolic murmur - GI/Abdominal GI/Abdominal exam: Present: normal bowel sounds, soft, no peritoneal signs. Absent: distended, tenderness - Extremities Exam Extremities exam: Present: warm, radial pulses palpable and symmetrical. Absent : calf tenderness, cyanotic, pedal edema - Neurological Exam Neurological exam: Present: CN II-XII intact, oriented X3, no focal deficits. Absent: pronater drift, facial droop, speech deficit - Skin Skin exam: Present: dry, intact - Patient Status Disposition: Home, Self-Care Condition: Good Functional capacity at discharge: independent ambulation Overall status at discharge: patient is progressing back to baseline - Discharge Instructions Instructions: Chronic Obstructive Pulmonary Disease (DC), Azithromycin (By mouth), Prednisone (By mouth) Follow Up With: Kimberley Richey CNP [Primary Care Provider] - Francy Rob MD [Partnered Physician] - 11/15/17 - Diet and Activity Activity: increase activity as tolerated Diet: advance to your usual diet
[2017-11-09] MEDS: Azithromycin 500 MG in D5% in Water 250 ML IVPB SCH (14:33)
[2017-11-09 15:09] VITALS: BP 132/75
== END 2017-11-09 16:45 | disposition home or self-care (01) | DRG 190 ==
LOC: EMEROO 10:56 → 3BNU 10:56
PROVIDERS: ADMIT Internal Medicine; ATTEND Registered Nurse

== ENCOUNTER 2021-03-21 11:19 | Observation (INO) ==
[2021-03-21] MEDS ORDERED: methylPREDNISolone 125 MG/2 ML VIAL IVP ONE (11:33)
[2021-03-21] MEDS ORDERED: Ipratropium/Albuterol Neb 3 ML IH ONE (11:33)
[2021-03-21 11:47] LABS: Basophils # 0.1 K/mcL (0.0-0.2); Basophils % 0.7 %; Eosinophils # 0.2 K/mcL (0.0-0.6); Eosinophils % 1.4 %; Hematocrit 39.7 % (35.3-44.9); Hemoglobin 12.5 g/dL (11.5-15.4); Immature Granulocytes % 0.6 % (0-4); Lymphocytes # 2.9 K/mcL (0.6-4.6); Lymphocytes % 26.6 %; Mean Corpuscular HGB Conc 31.5 g/dL (31.6-35.5); Mean Corpuscular Hemoglobin 25.9 pg (28.0-33.3); Mean Corpuscular Volume 82.2 fL (83.0-100.0); Mean Platelet Volume 11.6 fL (9.4-12.4); Monocytes # 1.1 K/mcL (0.0-1.3); Monocytes % 9.5 %; Neutrophils # 6.7 K/mcL (1.6-8.9); Platelet Count 382 K/mcL (140-400); Red Blood Count 4.83 M/mcL (3.82-4.97); Red Cell Distribution Width 14.6 % (11.5-14.5); Segmented Neutrophils % 61.2 %
[2021-03-21 12:08] LABS: BUN/Creatinine Ratio 5 (6-26); Blood Urea Nitrogen 4 mg/dL (8-23); Calcium 8.9 mg/dL (8.6-10.3); Carbon Dioxide 24 mEq/L (23-29); Chloride 106 mEq/L (98-107); Glucose 134 mg/dL (70-105); Osmolality,Calculated 291 (280-300); Potassium 3.2 mEq/L (3.5-5.1); Sodium 141 mEq/L (136-145); Troponin I < 0.03 ng/mL (< 0.04); eGFR For African Americans > 60 (> 60); eGFR For Non-African Americans > 60 (> 60)
[2021-03-21] MEDS ORDERED: 0.9 % Sodium Chloride 500 ML IVC ONE (13:00)
[2021-03-21] MEDS ORDERED: Isovue-370 500 ML BOTTLE IVP ONE (13:12)
[2021-03-21 14:37] LABS: ABG Base Excess -1 mEq/L (-2 to 3); ABG HCO3 24 mEq/L (21-27); ABG Oxygen Saturation 90 % (95-98); ABG PCO2 38 mmHg (35-45); ABG PH 7.41 pH Units (7.32-7.45); ABG PO2 59 mmHg (85-104); ABG TCO2 25 mEq/L (20-26)
[2021-03-21] MEDS ORDERED: Ondansetron ODT 4 MG TAB.RAPDIS SL PRN (15:12)
[2021-03-21] MEDS ORDERED: Mag Hydrox/Al Hydrox/Simeth 30 ML UDC PO PRN (15:12)
[2021-03-21] MEDS ORDERED: Melatonin 3 MG TABLET PO PRN (15:12)
[2021-03-21] MEDS ORDERED: Naloxone 0.4 MG/ML INJ IVP PRN (15:12)
[2021-03-21] MEDS ORDERED: Albuterol 2.5 MG/3 ML NEBULIZER IH PRN (15:14)
[2021-03-21] MEDS ORDERED: Azithromycin 250 MG TABLET PO ONE ×2 (15:16→17:30)
[2021-03-21] MEDS: Ipratropium/Albuterol Neb 3 ML IH SCH ×3 (15:49→23:39)
[2021-03-21] MEDS: *HR* Heparin 5,000 UNIT/ML VIAL SQ SCH (17:23)
[2021-03-21] MEDS: cilostazoL 100 MG TABLET PO SCH (21:35)
[2021-03-21] MEDS: Budesonide/Formoterol 80/4.5 1 PUFF INH IH SCH (22:08)
[2021-03-22 01:57] LABS: Basophils % 0.1 %; Hematocrit 36.1 % (35.3-44.9); Hemoglobin 11.1 g/dL (11.5-15.4); Immature Granulocytes % 0.7 % (0-4); Lymphocytes % 12.6 %; Mean Corpuscular HGB Conc 30.7 g/dL (31.6-35.5); Mean Corpuscular Hemoglobin 25.6 pg (28.0-33.3); Mean Corpuscular Volume 83.4 fL (83.0-100.0); Monocytes # 0.7 K/mcL (0.0-1.3); Monocytes % 8.6 %; Neutrophils # 6.4 K/mcL (1.6-8.9); Platelet Count 331 K/mcL (140-400); Red Blood Count 4.33 M/mcL (3.82-4.97); Red Cell Distribution Width 14.4 % (11.5-14.5); White Blood Count 8.3 K/mcL (4.3-11.1)
[2021-03-22 02:20] LABS: BUN/Creatinine Ratio 10 (6-26); Blood Urea Nitrogen 7 mg/dL (8-23); Calcium 8.9 mg/dL (8.6-10.3); Carbon Dioxide 25 mEq/L (23-29); Chloride 103 mEq/L (98-107); Glucose 217 mg/dL (70-105); Osmolality,Calculated 295 (280-300); Potassium 3.5 mEq/L (3.5-5.1); Sodium 140 mEq/L (136-145); eGFR For African Americans > 60 (> 60); eGFR For Non-African Americans > 60 (> 60)
[2021-03-22] MEDS: Ipratropium/Albuterol Neb 3 ML IH SCH ×2 (04:02→07:49)
[2021-03-22] MEDS: *HR* Heparin 5,000 UNIT/ML VIAL SQ SCH (06:00)
[2021-03-22 06:54] VITALS: BP 132/79
[2021-03-22] MEDS: Budesonide/Formoterol 80/4.5 1 PUFF INH IH SCH (07:49)
[2021-03-22] MEDS: cilostazoL 100 MG TABLET PO SCH (08:29)
[2021-03-22] MEDS ORDERED: BuPROPion XL (24 HR) 150 MG TABLET PO SCH (09:00)
[2021-03-22] MEDS ORDERED: predniSONE 20 MG TABLET PO SCH (09:00)
[2021-03-22] MEDS ORDERED: (Roflumilast [Daliresp] 500 MCG Tablet) PO SCH (09:00)
[2021-03-22] MEDS ORDERED: Azithromycin 250 MG TABLET PO SCH (09:00)
== END 2021-03-22 10:29 | disposition home or self-care (01) ==
LOC: 3BNU 11:19 → EMEROOARM 11:19 → SUATTDRO 13:57 → 3BNU 14:38
PROVIDERS: ADMIT Family Medicine; ATTEND Family Medicine

== ENCOUNTER 2021-03-23 13:48 | Observation (INO) ==
[2021-03-23 17:23] LABS: Basophils # 0.1 K/mcL (0.0-0.2); Basophils % 0.4 %; Eosinophils % 0.2 %; Hematocrit 36.7 % (35.3-44.9); Hemoglobin 11.8 g/dL (11.5-15.4); Immature Granulocytes % 0.6 % (0-4); Lymphocytes # 3.5 K/mcL (0.6-4.6); Lymphocytes % 25.1 %; Mean Corpuscular HGB Conc 32.2 g/dL (31.6-35.5); Mean Corpuscular Hemoglobin 26.5 pg (28.0-33.3); Mean Corpuscular Volume 82.5 fL (83.0-100.0); Mean Platelet Volume 11.3 fL (9.4-12.4); Monocytes # 1.4 K/mcL (0.0-1.3); Monocytes % 10.4 %; Neutrophils # 8.7 K/mcL (1.6-8.9); Platelet Count 383 K/mcL (140-400); Red Blood Count 4.45 M/mcL (3.82-4.97); Red Cell Distribution Width 14.6 % (11.5-14.5); Segmented Neutrophils % 63.3 %
[2021-03-23 17:25] LABS: White Blood Count 13.8 K/mcL (4.3-11.1)
[2021-03-23 17:48] LABS: BUN/Creatinine Ratio 7 (6-26); Blood Urea Nitrogen 5 mg/dL (8-23); Carbon Dioxide 26 mEq/L (23-29); Chloride 104 mEq/L (98-107); Glucose 79 mg/dL (70-105); Osmolality,Calculated 290 (280-300); Potassium 3.2 mEq/L (3.5-5.1); Sodium 142 mEq/L (136-145); Troponin I < 0.03 ng/mL (< 0.04); eGFR For African Americans > 60 (> 60); eGFR For Non-African Americans > 60 (> 60)
[2021-03-23] MEDS ORDERED: Ipratropium/Albuterol Neb 3 ML IH ONE (18:02)
[2021-03-23] MEDS ORDERED: Naloxone 0.4 MG/ML INJ IVP PRN (20:25)
[2021-03-23] MEDS ORDERED: Acetaminophen 325 MG TABLET PO PRN (20:25)
[2021-03-23] MEDS ORDERED: Ondansetron 4 MG/2 ML VIAL IVP PRN (20:25)
[2021-03-23] MEDS ORDERED: Albuterol 2.5 MG/3 ML NEBULIZER IH PRN (21:07)
[2021-03-23] MEDS ORDERED: (Diclofenac Sodium [Voltaren] 100 GM Gel..Gram.) TP PRN (21:07)
[2021-03-24] MEDS: Budesonide/Formoterol 80/4.5 1 PUFF INH IH SCH ×2 (07:33→20:21)
[2021-03-24] MEDS: Tiotropium 10 INH DOSE IH SCH (07:33)
[2021-03-24 08:01] LABS: Hematocrit 34.6 % (35.3-44.9); Hemoglobin 10.5 g/dL (11.5-15.4); Immature Granulocytes % 0.3 % (0-4); Lymphocytes % 35.2 %; Mean Corpuscular HGB Conc 30.3 g/dL (31.6-35.5); Mean Corpuscular Hemoglobin 25.6 pg (28.0-33.3); Mean Corpuscular Volume 84.4 fL (83.0-100.0); Mean Platelet Volume 11.7 fL (9.4-12.4); Monocytes % 11.4 %; Platelet Count 307 K/mcL (140-400); Red Cell Distribution Width 14.9 % (11.5-14.5); White Blood Count 9.3 K/mcL (4.3-11.1)
[2021-03-24 08:02] LABS: Basophils # 0.1 K/mcL (0.0-0.2); Basophils % 1.1 %; Eosinophils # 0.3 K/mcL (0.0-0.6); Lymphocytes # 3.3 K/mcL (0.6-4.6); Monocytes # 1.1 K/mcL (0.0-1.3); Neutrophils # 4.5 K/mcL (1.6-8.9)
[2021-03-24 08:11] LABS: BUN/Creatinine Ratio 7 (6-26); Blood Urea Nitrogen 5 mg/dL (8-23); Calcium 8.7 mg/dL (8.6-10.3); Carbon Dioxide 26 mEq/L (23-29); Chloride 107 mEq/L (98-107); Glucose 80 mg/dL (70-105); Magnesium 1.8 mg/dL (1.6-2.6); Osmolality,Calculated 286 (280-300); Potassium 3.9 mEq/L (3.5-5.1); Sodium 140 mEq/L (136-145); eGFR For African Americans > 60 (> 60); eGFR For Non-African Americans > 60 (> 60)
[2021-03-24] MEDS: cilostazoL 100 MG TABLET PO SCH ×2 (08:24→20:35)
[2021-03-24] MEDS: predniSONE 20 MG TABLET PO SCH (08:24)
[2021-03-24] MEDS: BuPROPion XL (24 HR) 150 MG TABLET PO SCH (08:24)
[2021-03-24] MEDS: Azithromycin 250 MG TABLET PO SCH (08:24)
[2021-03-24] MEDS: (Roflumilast [Daliresp] 500 MCG Tablet) PO SCH (08:25)
[2021-03-24] MEDS: *HR* Enoxaparin 40 MG/0.4 ML SYRINGE SQ SCH (08:25)
[2021-03-25 06:46] VITALS: BP 110/68
[2021-03-25] MEDS: Tiotropium 10 INH DOSE IH SCH (07:19)
[2021-03-25] MEDS: Budesonide/Formoterol 80/4.5 1 PUFF INH IH SCH (07:19)
[2021-03-25] MEDS: cilostazoL 100 MG TABLET PO SCH (07:34)
[2021-03-25] MEDS: BuPROPion XL (24 HR) 150 MG TABLET PO SCH (07:34)
[2021-03-25] MEDS: Azithromycin 250 MG TABLET PO SCH (07:34)
[2021-03-25] MEDS: predniSONE 20 MG TABLET PO SCH (07:34)
[2021-03-25] MEDS: (Roflumilast [Daliresp] 500 MCG Tablet) PO SCH (07:35)
[2021-03-25] MEDS: *HR* Enoxaparin 40 MG/0.4 ML SYRINGE SQ SCH (07:38)
== END 2021-03-25 12:47 | disposition home or self-care (01) ==
LOC: 3BNU 13:48 → EMEROOARM 13:48 → SUATTDRO 18:45 → 3BNU 20:02 → SUATTDRO 03-24 15:00
PROVIDERS: ADMIT Internal Medicine; ATTEND Internal Medicine